=== PATIENT | female | born 1980 | race Caucasian/White ===

== ENCOUNTER 2019-07-09 11:54 | Emergency (ER) | payer OTHER, MEDICAID, SELFPAY ==
[2019-07-09] VITALS (8 sets, daily range): BP systolic 124–141; BP diastolic 72–93; PULSE 70–130; RESP 13–26; TEMP 36.4; O2SAT 94–100
--- NOTE | 2019-07-09 12:06 | DI.RAD.S_ITS ---
PROCEDURE: XR CHEST 2V INDICATIONS: History of spontaneous pneumo with shortness of breath TECHNIQUE: 2 views of the chest were acquired. COMPARISON: None. FINDINGS: Surgical changes and devices: None. Lungs and pleura: Diffuse haziness of right upper lung field with posterior density seen on lateral view, suggesting possible loculated right posterior pleural fluid. Patchy platelike atelectasis in the right lower lobe. No pneumothorax identified. Mediastinum: Mediastinal contours are normal. Heart size is normal. Bones and chest wall: No suspicious bony abnormalities. Soft tissues appear unremarkable. IMPRESSION: 1. Suspect posterior loculated pleural fluid in the right hemithorax from the mid chest superiorly. 2. Patchy atelectasis in the right lung. 3. No pneumothorax. Comment: Contrast chest CT may be helpful. Dictated by: Sebastien Rivera M.D. on 07/09/2019 at 12:38 Approved by: Sebastien Rivera M.D. on 07/09/2019 at 12:40
--- NOTE | 2019-07-09 12:20 | PC.NURSE ---
Patient came in to the ER complaining of SOB. Was treated recently at [facility] in [place] ED on Tuesday for pneumothorax. Today lung sounds diminished/absent over her right lung field. Patient is A&Ox4.
--- NOTE | 2019-07-09 12:23 | ED_ITS ---
HPI - General Adult General Chief complaint: Shortness of Breath/Dyspnea Stated complaint: Recovering From Collapased Lung, Not Improving Time Seen by Provider: 07/09/19 11:57 Source: patient Mode of arrival: Ambulatory Limitations: no limitations History of Present Illness HPI narrative: 39-year-old female. The in the last month sustained a spontaneous hemopneumothorax. Unsure the exact etiology. She was initially seen in an outside emergency department for chest discomfort. She states that she had a chest x-ray done and ultrasounds of her legs. She received a phone call from the emergency department today later stating that she had a superficial thrombosis in her lower extremity. She was started on a nticoagulation. The next day she started having more chest pain. She went back to the emergency department. Other x-ray was obtained which showed a right- sided pneumothorax. Chest tube was placed. She was admitted to the hospital. During that time the chest tube was replaced with a larger 1 because she developed hemothorax. She was then transferred to [facility] where she had this chest tube placed 2 more times. All tubes were ventrally removed. She was discharged home. Went to her primary doctor yesterday for follow-up. Had a chest x-ray done. She was told that her chest x-ray was not improving. She was told that if she ever had the shortness of breath or chest pain she should come the emergency department. She states that she feels like since she was discharged from the hospital she has not worsened but certainly has not improved. Still have some shortness of breath and dyspnea on exertion. Related Data Home Medications Medication Instructions Recorded Confirmed acetaminophen 1,000 mg PO Q6H PRN 07/09/19 07/09/19 iron,carbonyl-vitamin C-FOS 1 tab PO DAILY 07/09/19 07/09/19 [Chewable Iron] Previous Rx's Medication Instructions Recorded furosemide [Lasix] 40 mg PO DAILY 3 Days #3 tab 07/09/19 Allergies Allergy/AdvReac Type Severity Reaction Status Date / Time No Known Drug Allergies Allergy Verified 07/09/19 12:26 Review of Systems Constitutional Constitutional: Denies fever(s) Cardiovascular Cardiovascular: Reports chest pain, Reports dyspnea and Reports dyspnea on exertion Respiratory Respiratory: Denies cough, Reports dyspnea and Reports dyspnea on exertion Gastrointestinal Gastrointestinal: Denies abdominal pain, Denies nausea and Denies vomiting Integumentary/Breasts Skin/Breast: Denies lesions and Denies rash Neurologic Neurologic: Denies behavioral changes Psychiatric Psychiatric: Denies behavioral changes Hematologic/Lymphatic Hematologic/Lymphatic: Denies easy bleeding and Denies easy bruising Patient History Medical History (Updated 07/09/19 @ 16:08 by Dustin Bravo DO) Anemia (Acute) Pneumothorax (Acute) Social History Smoking Status: Former smoker Exam Initial Vital Signs Initial Vital Signs: Vital Signs Temperature 97.6 F 07/09/19 12:06 Pulse Rate 130 H 07/09/19 12:06 Respiratory Rate 13 07/09/19 12:06 Blood Pressure 136/93 H 07/09/19 12:06 Pulse Oximetry 98 07/09/19 12:06 Const General: cooperative, comfortable and well developed Limitations: mental status not altered HENMT Head: normal to inspection and normocephalic Resp Effort & Inspection: normal respiratory effort, not labored, no nasal flaring and not tachypneic Other: Decreased sounds right Cardio Rate: tachycardic Rhythm: regular rhythm GI Inspection: non-distended Palpation: soft, No firm and No tender Skin Lesions: no lesions Rashes: no rashes Neuro General: alert and awake Cognition: normal cognition Speech: speech normal Extrem General: normal to inspection and capillary refill normal Psych Appearance: grossly normal and well kempt Scores GCS Annabelle coma scale eye opening: Spontaneous [place] coma scale verbal response: Orientated [place] coma scale motor response: Obey commands [place] coma scale total score: 15 Course Orders Ordered: ED Orders 07/09/19 12:06 XR chest 2V Stat 07/09/19 12:15 Basic Metabolic Panel Stat Complete Blood Count AUTO DIFF Stat Test Serum,Qual Stat 07/09/19 14:03 CT chest w con Stat Discontinued Medications Acetaminophen (Tylenol) 650 mg PO NOW ONE Stop: 07/09/19 12:49 Last Admin: 07/09/19 13:03 Dose: 650 mg Documented by: ANTHONY Sodium Chloride (Normal Saline 0.9%) 1,000 mls @ 1,000 mls/hr IV BOLUS ONE Stop: 07/09/19 13:44 Last Infusion: 07/09/19 14:04 Dose: 0 mls/hr Documented by: Admin: 07/09/19 13:02 Dose: 1,000 mls/hr Documented by: ANTHONY Vital Signs Vital signs: Vital Signs - 8 hr 07/09/19 12:06 07/09/19 12:24 07/09/19 13:00 Temperature 97.6 F Pulse Rate 130 H 116 H 96 H Respiratory Rate 13 17 26 H Blood Pressure 136/93 H Blood Pressure [Right Arm] 141/91 H 138/83 Pulse Oximetry 98 94 100 07/09/19 13:30 07/09/19 14:15 07/09/19 15:00 Temperature Pulse Rate 80 90 70 Respiratory Rate 18 16 18 Blood Pressure Blood Pressure [Right Arm] 130/72 139/84 124/76 Pulse Oximetry 99 100 100 07/09/19 15:09 07/09/19 16:09 Temperature Pulse Rate 84 78 Respiratory Rate 26 H 18 Blood Pressure Blood Pressure [Right Arm] 124/76 126/83 Pulse Oximetry 99 100 Medical Decision Making Lab Data Lab results reviewed: Yes I reviewed the patient's lab results. Result diagrams: 07/09/19 12:15 07/09/19 12:15 Labs: Lab Results 07/09/19 07/09/19 07/09/19 Range/Units 12:15 12:15 12:15 WBC 10.8 (4.5-11.0) X10^3/uL RBC 4.66 (4.0-5.2) X10^6/uL Hgb 12.9 (12.0-16.0) g/dL Hct 38.9 (36-46) % MCV 83.5 (80-100) fL MCH 27.7 (26-34) PG MCHC 33.2 (30-36) % RDW 22.8 H (11.6-14.8) % Plt Count 673 H (150-400) X10^3/uL Neut % (Auto) 72.1 (50-75) % Lymph % (Auto) 18.0 L (25-40) % [place] % (Auto) 6.8 (3-14) % Eos % (Auto) 2.2 (2-4) % Baso % (Auto) 0.9 (0-2) % Neut # (Auto) 7800 H (3117-1299) /uL Lymph # (Auto) 1900 (6494-4119) /uL [place] # (Auto) 700 (0-900) /uL Eos # (Auto) 200 (0-450) /uL Baso # (Auto) 100 (0-100) /uL RBC Morphology Not Reportable Poikilocytosis 1+ H Anisocytosis 2+ H Sodium 139 (137-145) mmol/L Potassium 4.1 (3.4-5.1) mmol/L Chloride 99 (98-107) mmol/L Carbon Dioxide 30 (22-32) mmol/L BUN 7 (7-17) mg/dL Creatinine 0.62 (0.52-1.04) mg/dL Estimated GFR > 60.0 (>60) mL/min BUN/Creatinine Ratio 11.3 (6-22) Glucose 110 H (70-100) mg/dL Calcium 10.2 (8.4-10.2) mg/dL Serum , Qual Negative (Negative) Imaging Data Chest x-ray: Radiologist's Impression: [address] [address] XRay Report Signed Patient: Sarah King LMR#: [id number] : 1980Acct:[id number] Age/Sex: 39 / FDate of Service: 07/09/19 Loc: ED Accession Number: [id number] Procedure: XR chest 2V Ordering Provider: Dustin Bravo D.O. PROCEDURE: XR CHEST 2V INDICATIONS: History of spontaneous pneumo with shortness of breath TECHNIQUE: 2 views of the chest were acquired. COMPARISON: None. FINDINGS: Surgical changes and devices: None. Lungs and pleura: Diffuse haziness of right upper lung field with posterior density seen on lateral view, suggesting possible loculated right posterior pleural fluid. Patchy platelike atelectasis in the right lower lobe. No pneumothorax identified. Mediastinum: Mediastinal contours are normal. Heart size is normal. Bones and chest wall: No suspicious bony abnormalities. Soft tissues appear unremarkable. IMPRESSION: 1. Suspect posterior loculated pleural fluid in the right hemithorax from the mid chest superiorly. 2. Patchy atelectasis in the right lung. 3. No pneumothorax. Comment: Contrast chest CT may be helpful. Dictated by: Sebastien Rivera M.D. on 07/09/2019 at 12:38 Approved by: Sebastien Rivera M.D. on 07/09/2019 at 12:40 CT scan - chest: Radiologist's Impression: [address] [address] [address] Scan Report Signed Patient: Sarah King LMR#: [id number] : 1980Acct:[id number] Age/Sex: 39 / FDate of Service: 07/09/19 Loc: ED Accession Number: [id number] Procedure: CT chest w con Ordering Provider: Dustin Bravo D.O. PROCEDURE: CT CHEST W CON INDICATIONS: Right-sided pulmonary fluid collection TECHNIQUE: After the administration of intravenous contrast, 5 mm thick sections acquired from the pulmonary apices to the posterior costophrenic angles. 1 mm axial lung, 5 mm thick coronal and sagittal reformats and 7 mm axial MIP were acquired. For radiation dose reduction, the following was used: automated exposure control, adjustment of mA and/or kV according to patient size. COMPARISON: [facility], CR, XR CHEST 2V, 07/09/2019, 12:02. FINDINGS: Image quality: Excellent. Lungs and pleura: There is a small right-sided pleural effusion seen, which sharif ears free-flowing. This measures approximately 0 Hounsfield units, and is consistent with simple fluid. There is consolidation with internal enhancement seen involving the right lower lobe. Small amount of fluid is seen invaginating along the right oblique fissure. No pneumothorax is seen. A small amount of subpleural bleb formation can be seen. Mediastinum: Heart size is normal. No pericardial effusion. No mediastinal or hilar adenopathy by size criteria. Thoracic aorta and central pulmonary arteries are normal in size. Esophagus is normal in caliber. No hiatal hernia. Bones and chest wall: No suspicious bony lesions. No vertebral body compression fractures. No axillary or supraclavicular adenopathy by size criteria. Thyroid gland demonstrates no significant CT abnormality. Abdomen: Visualized upper abdominal solid organs appear normal. Upper abdominal bowel loops are normal in caliber. IMPRESSION: Small, simple appearing right-sided pleural effusion, which appears free-flowing. Consolidation can be seen at the right lung base, likely related to a collection of atelectasis and infiltrate. Dictated by: Mika Louise M.D. on 07/09/2019 at 13:19 Approved by: Mika Louise M.D. on 07/09/2019 at 13:22 MDM Narrative Medical decision making narrative: Patient not hypoxic, was initially tachycardic upon arrival but that improved. Not tachypneic. Patient states that since she has been discharged from the hospital her symptoms have not worsened but they have not improved. Initial chest x-ray read Radiology recommend CT scan. This is performed. Shows no pneumothorax. Does show small pleural effusions. I did discuss the case with with cardiothoracic surgery at [facility] who after discussion of the radiology results recommended the patient did not need any further procedures. Had a discussion with the patient regarding her symptoms. We acknowledge that the CT scan does mention that there were some findings concerning for pneumonia however she is afebrile, does not have an elevated white blood cell count and this findings could very well be contusions from her prior procedures. Cardiothoracic surgery did recommend placing the patient on diuretics to help with the effusions which will do. Will hold on antibiotics for now. Patient was given return precautions. Will have her follow-up with her primary provider. She expressed understanding and agreement. Discharge Plan Departure Patient Disposition: Home Clinical Impression: Pleural effusion Discharge Date/Time: 07/09/19 16:17 Instructions: DI for Pleural Effusion Activity Restrictions/Additional Instructions: Recommend that you keep all of your scheduled medical appointments. Your prescriptions were electronically transmitted to [facility] in [place]. Contact your primary provider for follow-up. Return to the emergency department for any new or worsening symptoms Prescriptions: New furosemide [Lasix] 40 mg tablet 40 mg PO DAILY 3 Days Qty: 3 RF: 0 No Action acetaminophen 500 mg Capsule 1,000 mg PO Q6H PRN (Reason: Pain (Scale Score 1-3)) RF: 0 Chewable Iron 30-10-25 mg Tablet,Chewable 1 tab PO DAILY RF: 0 Referrals: Jazmin Serrano ARNP [Primary Care Provider] -
--- NOTE | 2019-07-09 12:24 | PC.NURSE ---
dr. almonte notified of pt arrival, upon triage
--- NOTE | 2019-07-09 12:30 | PC.NURSE ---
Pt had leg pain, went to [facility] ED, dx w/ superficial thrombophlebitis, placed on eliquis, developed hemothorax (? hemo/pnuemo) chest tube placed, went to [facility] after 2 days @ [facility] where she had multiple chest tubes and was discharged off of blood thinners. No able to speak in full sentences. [place]/warm/dry but HR is 106-132 sinus tach w/o ectopy. Pt has normal blood pressure. Trachea is midline. Pt is eating and drinking w/o difficulty and is taking only tylenol for pain. Pain has not worsened over past days.
[2019-07-09] MEDS: SODIUM CHLORIDE 0.9% 1,000 ML 1000 ML IV (13:02)
[2019-07-09] MEDS: ACETAMINOPHEN 325 MG TABLET 650 MG PO (13:03)
[2019-07-09 13:09] LABS: Add Manual Diff / Slide Review NO; Basophils Absolute Auto 100 /uL (0-100); Basophils Percent Auto 0.9 % (0-2); Eosinophils Absolute Auto 200 /uL (0-450); Eosinophils Percent Auto 2.2 % (2-4); Hematocrit 38.9 % (36-46); Hemoglobin 12.9 g/dL (12.0-16.0); Lymphocytes Absolute Auto 1900 /uL (1100-4500); Mean Corpuscular HGB Conc 33.2 % (30-36); Mean Corpuscular Hemoglobin 27.7 PG (26-34); Mean Corpuscular Volume 83.5 fL (80-100); Monocytes Absolute Auto 700 /uL (0-900); Monocytes Percent Auto 6.8 % (3-14); Neutrophils Absolute Auto 7800 /uL (1500-7000); Neutrophils Percent Auto 72.1 % (50-75); Platelet Count 673 X10^3/uL (150-400); Red Blood Cell Count 4.66 X10^6/uL (4.0-5.2); Red Cell Distribution Width 22.8 % (11.6-14.8); White Blood Cell Count 10.8 X10^3/uL (4.5-11.0)
[2019-07-09 13:14] LABS: BUN Creatinine Ratio 11.3 (6-22); Blood Urea Nitrogen 7 mg/dL (7-17); Calcium 10.2 mg/dL (8.4-10.2); Carbon Dioxide 30 mmol/L (22-32); Chloride 99 mmol/L (98-107); Estimated Glomerular Filt Rate > 60.0 mL/min (>60); Glucose 110 mg/dL (70-100); HEMOLYSIS < 15 (0-50); Potassium 4.1 mmol/L (3.4-5.1); Sodium 139 mmol/L (137-145)
[2019-07-09 13:39] LABS: Anisocytosis 2+; Poikilocytosis 1+
[2019-07-09 13:51] LABS: Pregnancy Test Serum,Qual Negative (Negative)
--- NOTE | 2019-07-09 14:03 | DI.CT.S_ITS ---
PROCEDURE: CT CHEST W CON INDICATIONS: Right-sided pulmonary fluid collection TECHNIQUE: After the administration of intravenous contrast, 5 mm thick sections acquired from the pulmonary apices to the posterior costophrenic angles. 1 mm axial lung, 5 mm thick coronal and sagittal reformats and 7 mm axial MIP were acquired. For radiation dose reduction, the following was used: automated exposure control, adjustment of mA and/or kV according to patient size. COMPARISON: [facility], CR, XR CHEST 2V, 07/09/2019, 12:02. FINDINGS: Image quality: Excellent. Lungs and pleura: There is a small right-sided pleural effusion seen, which appears free-flowing. This measures approximately 0 Hounsfield units, and is consistent with simple fluid. There is consolidation with internal enhancement seen involving the right lower lobe. Small amount of fluid is seen invaginating along the right oblique fissure. No pneumothorax is seen. A small amount of subpleural bleb formation can be seen. Mediastinum: Heart size is normal. No pericardial effusion. No mediastinal or hilar adenopathy by size criteria. Thoracic aorta and central pulmonary arteries are normal in size. Esophagus is normal in caliber. No hiatal hernia. Bones and chest wall: No suspicious bony lesions. No vertebral body compression fractures. No axillary or supraclavicular adenopathy by size criteria. Thyroid gland demonstrates no significant CT abnormality. Abdomen: Visualized upper abdominal solid organs appear normal. Upper abdominal bowel loops are normal in caliber. IMPRESSION: Small, simple appearing right-sided pleural effusion, which appears free-flowing. Consolidation can be seen at the right lung base, likely related to a collection of atelectasis and infiltrate. Dictated by: Mika Louise M.D. on 07/09/2019 at 13:19 Approved by: Mika Louise M.D. on 07/09/2019 at 13:22
== END 2019-07-09 16:17 | disposition home or self-care (01) ==
PROVIDERS: Emergency Provider Emergency Medicine; PCP Nurse Practitioner Gerontology
DX: J90 Pleural effusion, not elsewhere classified (principal); R00.0 Tachycardia, unspecified; Z87.09 Personal history of other diseases of the respiratory system
CPT/HCPCS: 36415; 71046; 71260; 80048; 84703; 85025; 96360; 99284; 99285; Q9967

== ENCOUNTER 2019-08-20 21:04 | Emergency (ER) | payer OTHER, MEDICAID, SELFPAY ==
--- NOTE | 2019-08-20 21:08 | ED.CHESTPAIN ---
HPI - Chest Pain General Chief Complaint: Chest Pain Stated Complaint: Chest Pain, HX Collapsed Lung Time Seen by Provider: 08/20/19 21:06 Source: patient Mode of arrival: Ambulatory Limitations: no limitations History of Present Illness HPI narrative: 39F former smoker with history of spontaneous PTX and treatment with chest tube up in [place] presents with right sided chest pain since . She denies any new injury nor shortness of breath. She states that at times it feels sharp and stabbing and other times it feels pressure-like. She denies any dizziness, weakness or lightheadedness. She has had no runny nose, sore throat or cough. She states it feels different than when she was having troubles with pleural effusion and PTX before. She denies travel, hx of any type of cancer and has had peripheral clots before but no PE. Related Data Home Medications Medication Instructions Recorded Confirmed acetaminophen 1,000 mg PO Q6H PRN 07/09/19 07/09/19 iron,carbonyl-vitamin C-FOS 1 tab PO DAILY 07/09/19 07/09/19 [Chewable Iron] Previous Rx's Medication Instructions Recorded hydrocodone-acetaminophen 1 tab PO Q4-6H PRN #10 tab 08/20/19 Allergies Allergy/AdvReac Type Severity Reaction Status Date / Time No Known Drug Allergies Allergy Verified 07/09/19 12:26 Review of Systems Constitutional Constitutional: Denies chills, Denies fatigue, Denies fever(s), Denies frequent falls, Denies lethargy and Denies weakness Eyes Eyes: Denies change in vision, Denies eye discharge, Denies irritation and Denies loss of vision ENT Ears, Nose, Mouth, and Throat: Denies change in voice, Denies dizziness, Denies neck pain, Denies sore throat and Denies throat swelling Cardiovascular Cardiovascular: Reports chest pain, Denies irregular heart rhythm, Denies lightheadedness, Denies palpitations, Denies dyspnea, Denies dyspnea on exertion and Denies orthopnea Respiratory Respiratory: Denies cough, Denies dyspnea, Denies dyspnea on exertion and Denies wheezing Gastrointestinal Gastrointestinal: Denies abdominal pain, Denies change in bowel habits, Denies diarrhea, Denies nausea and Denies vomiting Genitourinary Genitourinary: Denies hematuria, Denies flank pain, Denies urinary incontinence and Denies urinary urgency Musculoskeletal Musculoskeletal: Denies back pain, Denies muscle weakness, Denies neck pain, Denies numbness and Denies tingling Integumentary/Breasts Skin/Breast: Denies pruritus, Denies erythema, Denies rash and Denies wounds Neurologic Neurologic: Denies behavioral changes, Denies confusion, Denies dizziness, Denies frequent falls, Denies loss of vision, Denies numbness, Denies tingling and Denies weakness Psychiatric Psychiatric: Denies anxiety, Denies behavioral changes, Denies confusion, Denies depression, Denies homicidal ideation and Denies suicidal ideation Endocrine Endocrine: Denies fatigue, Denies flushing and Denies palpitations Hematologic/Lymphatic Hematologic/Lymphatic: Denies easy bruising Allergic/Immunologic Allergic/Immunologic: Denies urticaria, Denies throat swelling and Denies wheezing Patient History Medical History Anemia (Acute) Pneumothorax (Acute) Social History Smoking Status: Former smoker Smoking Status: Former smoker Substance Use Type: does not use Exam Narrative Exam Narrative: GENERAL: [39] year old patient appears stated age. Well-nourished, well-developed patient, in mild distress. HEAD: Atraumatic. Normocephalic. EYES: Pupils equal round and reactive. Extraocular motions intact. No scleral icterus. No injection or drainage. ENT: Nose without bleeding, purulent drainage. Throat without erythema, tonsillar hypertrophy or exudate. Airway patent. NECK: Trachea midline. Non tender CARDIOVASCULAR: Regular rate and rhythm without murmurs, gallops, or rubs. RESPIRATORY: Clear to auscultation. Breath sounds equal bilaterally. No wheezes, rales, or rhonchi. GASTROINTESTINAL: Abdomen soft, non-tender, nondistended. EXTREMITIES: No edema or joint tenderness. BACK: Nontender without deformity or crepitance. No flank tenderness. NEURO: AOx3. SKIN: No rash or erythema of visible areas Initial Vital Signs Initial Vital Signs: Vital Signs Pulse Rate 91 H 08/20/19 21:16 Respiratory Rate 22 08/20/19 21:16 Blood Pressure 172/87 H 08/20/19 21:16 Pulse Oximetry 100 08/20/19 21:16 Scores HEART Score Heart Score history: Slightly Suspicious Heart Score EKG: Normal Heart Score Age: < 45 years old Heart Score risk factors: No known risk factors Heart Score troponin: < or = to normal limit Heart Score Total: 0 Course Orders Ordered: ED Orders 08/20/19 21:09 XR chest 2V Stat 08/20/19 21:14 EKG-12 Lead Stat 08/20/19 21:44 Complete Blood Count AUTO DIFF Stat Comprehensive Metabolic Panel Stat D Dimer Stat Lipase Stat Troponin & CK Cardiac Panel Stat 08/20/19 22:17 CT chest wo con Stat Discontinued Medications Hydrocodone Bitart/Acetaminophen (Vicodin 5/325 Prepack) 1 bottle MISC SEEINSTR ONE Stop: 08/20/19 23:49 Last Admin: 08/20/19 23:54 Dose: 1 bottle Documented by: VINAY Sodium Chloride (Normal Saline 0.9%) 1,000 mls @ 150 mls/hr IV CONT OSORIO Last Infusion: 08/20/19 23:54 Dose: 0 mls/hr Documented by: Admin: 08/20/19 21:42 Dose: 150 mls/hr Documented by: KAYY Vital Signs Vital signs: Vital Signs - 8 hr 08/20/19 21:16 08/20/19 22:00 08/20/19 23:32 Pulse Rate 91 H 61 61 Respiratory Rate 22 22 18 Blood Pressure Blood Pressure [Left Arm] 172/87 H 159/88 H 145/83 H Pulse Oximetry 100 100 100 08/21/19 00:01 Pulse Rate 88 Respiratory Rate 18 Blood Pressure 145/83 H Blood Pressure [Left Arm] Pulse Oximetry 99 MDM - Chest Pain Lab Data Result diagrams: 08/20/19 21:44 08/20/19 21:44 Labs: Lab Results 08/20/19 08/20/19 08/20/19 Range/Units 21:44 21:44 21:44 WBC 8.3 (4.5-11.0) X10^3/uL RBC 5.50 H (4.0-5.2) X10^6/uL Hgb 15.0 (12.0-16.0) g/dL Hct 45.3 (36-46) % MCV 82.5 (80-100) fL MCH 27.3 (26-34) PG MCHC 33.1 (30-36) % RDW 18.8 H (11.6-14.8) % Plt Count 251 (150-400) X10^3/uL Neut % (Auto) 46.1 L (50-75) % Lymph % (Auto) 41.6 H (25-40) % Wake % (Auto) 9.1 (3-14) % Eos % (Auto) 1.7 L (2-4) % Baso % (Auto) 1.5 (0-2) % Neut # (Auto) 3900 (7719-0575) /uL Lymph # (Auto) 3500 (5450-5665) /uL Wake # (Auto) 800 (0-900) /uL Eos # (Auto) 100 (0-450) /uL Baso # (Auto) 100 (0-100) /uL D-Dimer < 200 (<230) ng/mL Sodium 138 (137-145) mmol/L Potassium 4.1 (3.4-5.1) mmol/L Chloride 104 (98-107) mmol/L Carbon Dioxide 28 (22-32) mmol/L BUN 11 (7-17) mg/dL Creatinine 0.72 (0.52-1.04) mg/dL Estimated GFR > 60.0 (>60) mL/min BUN/Creatinine Ratio 15.3 (6-22) Glucose 98 (70-100) mg/dL Calcium 10.0 (8.4-10.2) mg/dL Total Bilirubin 0.3 (0.2-1.3) mg/dL AST 32 (14-36) IU/L ALT 28 (<35) IU/L Alkaline Phosphatase 31 L (38-126) U/L Total Creatine Kinase 41 (30-135) U/L CK-MB (CK-2) TNP CK-MB (CK-2) Rel Index TNP Troponin I < 0.012 (0.01-0.034) ng/mL Total Protein 8.4 H (6.3-8.2) g/dL Albumin 4.7 (3.5-5.0) g/dL Globulin 3.7 (1.7-4.1) g/dL Albumin/Globulin Ratio 1.3 (1.0-2.8) Lipase 193 (23-300) U/L Imaging Data Chest x-ray: Attestation: I personally reviewed and interpreted this imaging study as follows: My Impression: No obvious PTX, pneumonia, effusion Radiologist's Impression: Chart Viewer Diagnostics DATE TYPE STATUS AUTHOR Louise 08/20/19 21:09 Kisha Faria 07/09/19 14:03 Mika Louise 07/09/19 12:06 Sebastien Rivera Tara L 39, F0 1980 [facility], [facility] ED R10 72.575kg Chest Pain Search Chart No Data to Display No Data to Display Today 22:00 Sarah King 39 F [address] [address] XRay Report Signed Patient: Sarah King LMR#: [id number] : 1980Acct:[id number] Age/Sex: 39 / FDate of Service: 08/20/19 Loc: ED Accession Number: [id number] Procedure: XR chest 2V Ordering Provider: Taye Castanon D.O. PROCEDURE: XR CHEST 2V INDICATIONS: CP TECHNIQUE: 2 views of the chest were acquired. COMPARISON: [facility], CT, CT CHEST W CON, 07/09/2019, 13:56. [facility], CR, XR CHEST 2V, 07/09/2019, 12:02. FINDINGS: Surgical changes and devices: None. Lungs and pleura: Lungs are clear. No pleural effusions or pneumothorax. Mediastinum: Mediastinal contours are normal. Heart size is normal. Bones and chest wall: No suspicious bony abnormalities. Soft tissues appear unremarkable. IMPRESSION: No acute cardiopulmonary findings. Dictated by: Kisha Faria M.D. on 08/20/2019 at 21:39 Approved by: Kisha Faria M.D. on 08/20/2019 at 21:41 ECG Data Attestation: I personally reviewed and interpreted this ECG as follows: Interpretation: EKG is normal sinus rhythm rate [73 ] and free of any signs of ischemia or ectopy. No ST segmental elevation or depression. No T wave inversions MDM Narrative Medical decision making narrative: Multiple etiologies for patient's symptoms considered including: [Recurrence of pneumothorax versus pleural effusion versus pulmonary embolism versus other. Most likely irritation of existing scar tissue, perhaps from a small new effusion, nothing large enough to drain or admit.] Patient's symptoms improved or duration of stay with above-stated therapies. Findings and discharge diagnosis discussed with patient/family followed by verbalization of understanding Return precautions discussed with patient/family whom verbalize understanding. Discharge Plan Departure Patient Disposition: Home Clinical Impression: Atypical chest pain Discharge Date/Time: 08/21/19 00:03 Instructions: DI for Atypical Chest Pain Activity Restrictions/Additional Instructions: *You have been diagnosed with [ atypical chest pain, likely consequence of prior pneumothorax ] *What to do: *Take medications as directed: prescription sent to [email or web address] *Follow up with your primary care provider in 2-3 days, call for an appointment. Let them know you were seen in the Emergency Department and that we ask that you be seen in follow up *Return to ER if you should have any new, worsening or concerning symptoms, such as [increased pain, shortness of breath, or other bothersome symptoms ] Prescriptions: New hydrocodone-acetaminophen 5-325 mg tablet 1 tab PO Q4-6H PRN (Reason: pain) Qty: 10 RF: 0 No Action acetaminophen 500 mg Capsule 1,000 mg PO Q6H PRN (Reason: Pain (Scale Score 1-3)) RF: 0 Chewable Iron 30-10-25 mg Tablet,Chewable 1 tab PO DAILY RF: 0 Referrals: Jazmin Serrano ARNP [Primary Care Provider] -
[2019-08-20 21:16] VITALS: BP 172/87; PULSE 91; RESP 22; O2SAT 100
[2019-08-20] MEDS: SODIUM CHLORIDE 0.9% 1,000 ML 150 ML IV (21:42)
[2019-08-20 21:52] LABS: Add Manual Diff / Slide Review NO; Basophils Absolute Auto 100 /uL (0-100); Basophils Percent Auto 1.5 % (0-2); Eosinophils Absolute Auto 100 /uL (0-450); Eosinophils Percent Auto 1.7 % (2-4); Hematocrit 45.3 % (36-46); Lymphocytes Absolute Auto 3500 /uL (1100-4500); Lymphocytes Percent Auto 41.6 % (25-40); Mean Corpuscular HGB Conc 33.1 % (30-36); Mean Corpuscular Hemoglobin 27.3 PG (26-34); Mean Corpuscular Volume 82.5 fL (80-100); Monocytes Absolute Auto 800 /uL (0-900); Monocytes Percent Auto 9.1 % (3-14); Neutrophils Absolute Auto 3900 /uL (1500-7000); Neutrophils Percent Auto 46.1 % (50-75); Platelet Count 251 X10^3/uL (150-400); Red Cell Distribution Width 18.8 % (11.6-14.8); White Blood Cell Count 8.3 X10^3/uL (4.5-11.0)
[2019-08-20 21:59] LABS: Alanine Aminotransferase 28 IU/L (<35); Albumin 4.7 g/dL (3.5-5.0); Albumin Globulin Ratio 1.3 (1.0-2.8); Alkaline Phosphatase 31 U/L (38-126); Aspartate Aminotransferase 32 IU/L (14-36); BUN Creatinine Ratio 15.3 (6-22); Bilirubin Total 0.3 mg/dL (0.2-1.3); Blood Urea Nitrogen 11 mg/dL (7-17); Carbon Dioxide 28 mmol/L (22-32); Chloride 104 mmol/L (98-107); Creatine Kinase 41 U/L (30-135); D Dimer < 200 ng/mL (<230); Estimated Glomerular Filt Rate > 60.0 mL/min (>60); Globulin 3.7 g/dL (1.7-4.1); Glucose 98 mg/dL (70-100); HEMOLYSIS 15 (0-50); Lipase 193 U/L (23-300); Potassium 4.1 mmol/L (3.4-5.1); Sodium 138 mmol/L (137-145); Total Protein 8.4 g/dL (6.3-8.2)
[2019-08-20 22:00] VITALS: BP 159/88; PULSE 61; RESP 22; O2SAT 100
[2019-08-20 22:10] LABS: Troponin I < 0.012 ng/mL (0.01-0.034)
--- NOTE | 2019-08-20 22:17 | DI.CT.S_ITS ---
PROCEDURE: CT CHEST WO CON INDICATIONS: chest pain, shortness of breath TECHNIQUE: Noncontrast 5 mm thick sections acquired from the pulmonary apices to the posterior costophrenic angles. 1 mm lung window, 5 mm thick coronal and sagittal and 7 mm axial MIP reformats were then acquired. For radiation dose reduction, the following was used: automated exposure control, adjustment of mA and/or kV according to patient size. COMPARISON: [facility], CT, CT CHEST W CON, 07/09/2019, 13:56. FINDINGS: Image quality: Excellent. Lungs and pleura: There is a small residual subpleural effusion in the posterior right upper lobe, significant decrease compared to 07/09/2019. Mild dependent atelectasis in right upper lobe and right middle lobe. Mild emphysema. Multiple small pulmonary nodules are present bilaterally. There is a nodule in the right upper lobe (series 3 image 72). A couple of nodules are seen in the left lower lobe measuring 3 mm (series 3 image 76) and 4 mm (series 3 image 201). No pleural effusions or pneumothorax. Central and peripheral airways are patent and normal in caliber. Mediastinum: Heart size is normal. No pericardial effusion. No mediastinal adenopathy by size criteria. Thoracic aorta and central pulmonary arteries are normal in size. Esophagus is normal in caliber. No hiatal hernia. Bones and chest wall: No suspicious bony lesions. No vertebral body compression fractures. No axillary or supraclavicular adenopathy by size criteria. Thyroid gland is normal. Abdomen: Visualized upper abdominal solid organs and bowel loops appear normal in the absence of contrast. IMPRESSION: 1. A small residual loculated pleural effusion in the posterior right upper lobe, decreased compared to 07/09/2019. 2. There are multiple subcentimeter lung nodules bilaterally. Please see intervals following recommendation. 3. Mild emphysema. Fleischner Society criteria for SOLID lung nodule followup. Nodule size (mm)Low-risk patientHigh-risk patient?4No follow-up neededFollow-up at 12 mo; if no change, no further follow-up>[id number] CT at 12 mo; if no change, no further follow-up needed.Initial follow-up CT at 6-12 mo, then 18-24 mo if no change. >6-8Initial follow-up CT at 6-12 mo, then 18-24 mo if no change. Initial follow-up CT at 3-6 mo, then 9-12 mo and 24 mo if no change. >8Follow-up CT at 3, 9, 24 mo. Or PET and/or biopsy.Same as for low-risk pts. Dictated by: Tanja Huerta M.D. on 08/21/2019 at 8:36 Approved by: Tanja Huerta M.D. on 08/21/2019 at 8:47
[2019-08-20 23:32] VITALS: BP 145/83; PULSE 61; RESP 18; O2SAT 100
[2019-08-20] MEDS: HYDROCODONE/ACET 5/325 PREPACK 1 BOTTLE MISC (23:54)
[2019-08-21 00:01] VITALS: BP 145/83; PULSE 88; RESP 18; O2SAT 99
== END 2019-08-21 00:03 | disposition home or self-care (01) ==
PROVIDERS: Emergency Provider Emergency Medicine; PCP Nurse Practitioner Gerontology
DX: R07.89 Other chest pain (principal)
CPT/HCPCS: 36415; 71046; 71250; 80053; 82550; 83690; 84484; 85025; 85379; 93005; 96360; 96361; 99284

== ENCOUNTER → 2019-10-01 09:54 | Outpatient (CLI) | payer OTHER, MEDICAID, SELFPAY ==
[2019-10-01 23:41] LABS: COVID19 Sendout Not Detected (Not Detect)
== END ==
PROVIDERS: PCP Nurse Practitioner Gerontology; Visit Provider Physician Assistant
DX: Z01.812 Encounter for preprocedural laboratory examination (principal)
CPT/HCPCS: 87635

== ENCOUNTER 2019-10-04 09:29 | Emergency (ER) | payer OTHER, MEDICAID, SELFPAY ==
--- NOTE | 2019-10-04 09:33 | DI.RAD.S_ITS ---
PROCEDURE: XR CHEST 1V INDICATIONS: Chest pain TECHNIQUE: One view of the chest was acquired. COMPARISON: [facility], CR, XR CHEST 2V, 08/20/2019, 21:17. [facility], CR, XR CHEST 2V, 07/09/2019, 12:02. FINDINGS: Surgical changes and devices: None. Lungs and pleura: Lungs are clear. No pleural effusions or pneumothorax. Mediastinum: Mediastinal contours appear normal. Heart size is normal. Bones and chest wall: No suspicious bony lesions. Overlying soft tissues appear unremarkable. IMPRESSION: Relatively large lung volumes, which may indicate aggressive inspiratory effort in addition to COPD. No pneumonia or mass lesion is found. A definite source of chest pain is not seen. Dictated by: Manuel Brewer M.D. on 10/04/2019 at 9:04 Approved by: Manuel Brewer M.D. on 10/04/2019 at 9:05
--- NOTE | 2019-10-04 09:56 | ED_ITS ---
HPI - General Adult General Chief complaint: Chest Pain Stated complaint: ACTIVE CHEST PAIN NOW Time Seen by Provider: 10/04/19 09:33 Source: patient Mode of arrival: Ambulatory Limitations: no limitations History of Present Illness HPI narrative: 39-year-old female. Prior history of a spontaneous pneumothorax which required chest tube placement. Brought over from the respiratory clinic when she went to get a pulmonary function test that was ordered by her ?lung doctor ?reported that just prior to the pulmonary function test the patient did express that she was having right-sided chest discomfort. Patient states this chest discomfort is not new. It has been there since she had the pneumothorax and subsequent chest tubes. She has seen her lung doctor about the chest pain that she is here in the emergency department for today. She was told by her lung provider that this was ?scar tissue in that she would occasionally have discomfort. She states sometimes it is worse than others. States that last night it was 1 of the times where the pain was increased however today it is back to her baseline. No shortness of breath. Related Data Home Medications Medication Instructions Recorded Confirmed acetaminophen 1,000 mg PO Q6H PRN 07/09/19 07/09/19 iron,carbonyl-vitamin C-FOS 1 tab PO DAILY 07/09/19 07/09/19 [Chewable Iron] Previous Rx's Medication Instructions Recorded hydrocodone-acetaminophen 1 tab PO Q4-6H PRN #10 tab 08/20/19 Allergies Allergy/AdvReac Type Severity Reaction Status Date / Time morphine AdvReac Vomiting Verified 10/04/19 10:00 Review of Systems Constitutional Constitutional: Denies fever(s) Cardiovascular Cardiovascular: Reports chest pain and Denies dyspnea Respiratory Respiratory: Denies cough and Denies dyspnea Gastrointestinal Gastrointestinal: Denies abdominal pain, Denies nausea and Denies vomiting Musculoskeletal Musculoskeletal: Denies myalgias Integumentary/Breasts Skin/Breast: Denies lesions and Denies rash Neurologic Neurologic: Denies behavioral changes Psychiatric Psychiatric: Denies behavioral changes Hematologic/Lymphatic Hematologic/Lymphatic: Denies easy bleeding and Denies easy bruising Patient History Medical History Anemia (Acute) Pneumothorax (Acute) Social History Smoking Status: Former smoker Smoking Status: Former smoker Substance Use Type: does not use Exam Initial Vital Signs Initial Vital Signs: Vital Signs Temperature 98.2 F 10/04/19 10:00 Pulse Rate 75 10/04/19 10:00 Respiratory Rate 20 10/04/19 10:00 Blood Pressure 181/94 H 10/04/19 10:00 Pulse Oximetry 98 10/04/19 10:00 Const General: cooperative, healthy appearing, comfortable and well developed HENMT Head: normal to inspection and normocephalic Resp Effort & Inspection: normal respiratory effort Auscultation: clear to auscultation bilaterally Cardio Rate: regular rate Rhythm: regular rhythm Skin Lesions: no lesions Rashes: no rashes Neuro General: patient alert and patient awake Cognition: normal cognition Speech: speech normal Extrem General: normal to inspection and capillary refill normal Psych Appearance: grossly normal and well kempt Course Orders Ordered: ED Orders 10/04/19 09:33 XR chest 1V Stat EKG-12 Lead Stat Vital Signs Vital signs: Vital Signs - 8 hr 10/04/19 10:00 Temperature 98.2 F Pulse Rate 75 Respiratory Rate 20 Blood Pressure 181/94 H Pulse Oximetry 98 Medical Decision Making Imaging Data Chest x-ray: Radiologist's Impression: [address] [address] XRay Report Signed Patient: Sarah King LMR#: [id number] : 1980Acct:[id number] Age/Sex: 39 / FDate of Service: 10/04/19 Loc: ED Accession Number: [id number] Procedure: XR chest 1V Ordering Provider: Dustin Bravo D.O. PROCEDURE: XR CHEST 1V INDICATIONS: Chest pain TECHNIQUE: One view of the chest was acquired. COMPARISON: [facility], CR, XR CHEST 2V, 08/20/2019, 21:17. [facility], , XR CHEST 2V, 07/09/2019, 12:02. FINDINGS: Surgical changes and devices: None. Lungs and pleura: Lungs are clear. No pleural effusions or pneumothorax. Mediastinum: Mediastinal contours appear normal. Heart size is normal. Bones and chest wall: No suspicious bony lesions. Overlying soft tissues appear unremarkable. IMPRESSION: Relatively large lung volumes, which may indicate aggressive inspiratory effort in addition to COPD. No pneumonia or mass lesion is found. A definite source of chest pain is not seen. Dictated by: Manuel Brewer M.D. on 10/04/2019 at 9:04 Approved by: Manuel Brewer M.D. on 10/04/2019 at 9:05 ECG Data Attestation: I personally reviewed and interpreted this ECG as follows: Prior ECG tracings: not available for review Interpretation: Sinus rhythm Ventricular rate is 70 Normal axis Normal QRS Normal QTC No ST T wave changes MDM Narrative Medical decision making narrative: EKG is unremarkable, chest x-ray is unremarkable, pain that she was brought into the emergency department for today is not new for her. Patient actually stated that she did not want to be in the emergency department. She was brought here by the respiratory therapist after she was describing the chest pain prior to her pulmonary function test. Patient states that which she is having is not new. She has been evaluated for this pain in the past. Feel that we can hold on further workup. She does have a follow-up with her chemical research worker later today. She was given return precautions and follow-up instructions. She expressed understanding and agreement. Discharge Plan Departure Patient Disposition: Home Clinical Impression: Atypical chest pain Instructions: DI for Atypical Chest Pain Activity Restrictions/Additional Instructions: Recommend that you continue all of your medications as directed. Keep all of your scheduled medical appointments. Return to the emergency department for any new or worsening symptoms Prescriptions: No Action acetaminophen 500 mg Capsule 1,000 mg PO Q6H PRN (Reason: Pain (Scale Score 1-3)) RF: 0 Chewable Iron 30-10-25 mg Tablet,Chewable 1 tab PO DAILY RF: 0 hydrocodone-acetaminophen 5-325 mg tablet 1 tab PO Q4-6H PRN (Reason: pain) Qty: 10 RF: 0 Referrals: Jazmin Serrano ARNP [Primary Care Provider] -
[2019-10-04 10:00] VITALS: BP 181/94; PULSE 75; RESP 20; TEMP 36.8; O2SAT 98; BMI 25.7
[2019-10-04 10:31] VITALS: BP 125/85; PULSE 66; O2SAT 100
== END 2019-10-04 10:31 | disposition home or self-care (01) ==
PROVIDERS: Emergency Provider Emergency Medicine; PCP Nurse Practitioner Gerontology
DX: R07.89 Other chest pain (principal)
CPT/HCPCS: 71045; 93005; 99283; 99284

== ENCOUNTER 2019-11-19 11:10 | Emergency (ER) | payer OTHER, MEDICAID, SELFPAY ==
[2019-11-19] VITALS (8 sets, daily range): BP systolic 127–176; BP diastolic 80–113; PULSE 66–114; RESP 14–34; TEMP 37; O2SAT 95–100
--- NOTE | 2019-11-19 11:19 | DI.RAD.S_ITS ---
PROCEDURE: XR CHEST 1V INDICATIONS: chest pain TECHNIQUE: One view of the chest was acquired. COMPARISON: [facility], CR, XR CHEST 1V, 10/04/2019, 9:38. FINDINGS: Surgical changes and devices: None. Lungs and pleura: Lungs are clear. No pleural effusions or pneumothorax. Mediastinum: Mediastinal contours appear normal. Heart size is normal. Bones and chest wall: No suspicious bony lesions. Overlying soft tissues appear unremarkable. IMPRESSION: No acute process. Dictated by: Lm Adan M.D. on 11/19/2019 at 11:59 Approved by: Lm Adan M.D. on 11/19/2019 at 11:59
[2019-11-19 11:46] LABS: Add Manual Diff / Slide Review NO; Basophils Absolute Auto 0 /uL (0-100); Basophils Percent Auto 0.3 % (0-2); Eosinophils Absolute Auto 100 /uL (0-450); Eosinophils Percent Auto 1.3 % (2-4); Hematocrit 45.2 % (36-46); Hemoglobin 15.1 g/dL (12.0-16.0); Lymphocytes Absolute Auto 1500 /uL (1100-4500); Lymphocytes Percent Auto 28.3 % (25-40); Mean Corpuscular HGB Conc 33.4 % (30-36); Mean Corpuscular Hemoglobin 28.5 PG (26-34); Mean Corpuscular Volume 85.3 fL (80-100); Monocytes Absolute Auto 400 /uL (0-900); Monocytes Percent Auto 7.6 % (3-14); Neutrophils Absolute Auto 3300 /uL (1500-7000); Neutrophils Percent Auto 62.5 % (50-75); Platelet Count 255 X10^3/uL (150-400); Red Cell Distribution Width 16.4 % (11.6-14.8); White Blood Cell Count 5.3 X10^3/uL (4.5-11.0)
[2019-11-19 11:51] LABS: Prothrombin Time 11.6 SECONDS (10.1-12.7)
[2019-11-19 11:54] LABS: D Dimer < 200 ng/mL (<230); PTT Partial Thromboplastin Tim 31 SECONDS (26.4-36.2)
[2019-11-19 11:55] LABS: Alanine Aminotransferase 23 IU/L (<35); Albumin Globulin Ratio 1.4 (1.0-2.8); Alkaline Phosphatase 33 U/L (38-126); Aspartate Aminotransferase 31 IU/L (14-36); BUN Creatinine Ratio 10.8 (6-22); Bilirubin Total 0.8 mg/dL (0.2-1.3); Blood Urea Nitrogen 9 mg/dL (7-17); Calcium 9.8 mg/dL (8.4-10.2); Carbon Dioxide 31 mmol/L (22-32); Chloride 103 mmol/L (98-107); Creatine Kinase 74 U/L (30-135); Estimated Glomerular Filt Rate > 60.0 mL/min (>60); Globulin 3.5 g/dL (1.7-4.1); Glucose 98 mg/dL (70-100); HEMOLYSIS 17 (0-50); Lipase 102 U/L (23-300); Magnesium 1.9 mg/dL (1.6-2.3); Potassium 3.9 mmol/L (3.4-5.1); Sodium 140 mmol/L (137-145); Total Protein 8.5 g/dL (6.3-8.2)
[2019-11-19 12:07] LABS: Troponin I < 0.012 ng/mL (0.01-0.034)
--- NOTE | 2019-11-19 12:14 | ED_ITS ---
HPI - Chest Pain <VELMA Gonzalez - Last Filed: 11/19/19 20:25> General Chief Complaint: Chest Pain Stated Complaint: bloodclot eval/ lung advised from clinic Time Seen by Provider: 11/19/19 11:48 Source: patient Mode of arrival: Ambulatory Limitations: no limitations History of Present Illness HPI narrative: This is a 39-year-old female, former smoker, who has recent medical history as DVT, emphysema, spontaneous pneumo than hemothorax, fibromyalgia, hysterectomy with bilateral tubal ligation presents to ED after she was referred by hematology clinic for evaluation and treatment for possible pulmonary embolism and DVT. Patient states she had noticed 3 days ago feeling pins and needles in her arms and legs. She then had 1/2 mi walk on Tuesday and noticed small lump on right lower extremity. Patient denies redness, warmth, calf pain but rather pain is in anterior [place] region with small lump. Now she is experiencing mid upper chest discomfort and describes as sharp, aching, throbbing with bilateral midthoracic pain. Patient reports pain worsens with deep inhalation and bending over and reports nothing has been improving her discomfort. Patient reports albuterol inhaler is not improving chest discomfort. Patient denies palpitation, tachycardia or fainting episodes. Patient is not currently taking anticoagulants after she had hemothorax. Patient sees Dr. 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 Nascimento at [place] (bolt loader). Patient reports she has an appointment tomorrow with Dr. Nascimento for pulmonary function test. Related Data Home Medications Medication Instructions Recorded Confirmed acetaminophen 1,000 mg PO Q6H PRN 07/09/19 07/09/19 iron,carbonyl-vitamin C-FOS 1 tab PO DAILY 07/09/19 07/09/19 [Chewable Iron] Previous Rx's Medication Instructions Recorded hydrocodone-acetaminophen 1 tab PO Q4-6H PRN #10 tab 08/20/19 Allergies Allergy/AdvReac Type Severity Reaction Status Date / Time morphine AdvReac Vomiting Verified 10/04/19 10:00 Review of Systems <VELMA Gonzalez - Last Filed: 11/19/19 20:25> Review of Systems Narrative: General: Denies fever, chills, fatigue, malaise, sweats. HEENT: Denies sinus pain, ear pain, sore throat, difficulty swallowing, dizziness. Respiratory: See HPI Cardiovascular: HPI Gastrointestinal: Denies nausea, vomiting, abdominal pain, diarrhea, constipation, melena. : Denies dysuria, frequency, incontinence, hematuria, urinary retention. Musculoskeletal: See HPI Skin: Denies rash, skin lesions, or other. Neurologic: Denies weakness, headache, numbness, change in speech, confusion, seizures, incoordination. Psychiatric: No concerning psychosocial issues. 12-point review of systems is negative except for those stated above. Patient History <VELMA Gonzalez - Last Filed: 11/19/19 20:25> Medical History Anemia (Acute) DVT (deep venous thrombosis) (Acute) Emphysema lung (Acute) Fibromyalgia (Acute) History of pneumothorax (Acute) Pneumothorax (Acute) Social History Smoking Status: Former smoker Smoking Status: Former smoker alcohol intake frequency: 0-2 drinks per day Substance Use Type: does not use Exam <VELMA Gonzalez - Last Filed: 11/19/19 20:25> Narrative Exam Narrative: GEN: Alert, oriented x 3, well appearing and nourished, and in no acute distress. Head: Normal cephalic, atraumatic. No scalp or temporal tenderness, palpable mass or rash. EYES: Pupils are equal, round, and reactive to light and accommodation. Extraocular muscles are intact bilaterally. There is no subconjunctival hemorrhage, exudate and sclera non-icteric. ENT: Hearing grossly intact. Nose without bleeding, purulent discharge or dev iation. Mucous membrane moist, no mucosal lesion. Throat without erythema, tonsillar hypertrophy or exudate. Uvula in midline, airway patent. Neck: Trachea in midline. No JVD, non-tender without lymphadenopathy. No masses or thyroid megaly. Supple, non-tender and no meningeal signs. CARDIAC: Normal regular rate and rhythm without murmurs, gallops, or rubs. No chest wall tenderness. No peripheral edema, cyanosis or pallor. Capillary refill is less than 2 seconds. RESPIRATORY: Lungs are clear to auscultate bilaterally. No cough, wheezes, rales, or rhonchi. No stridor, respiratory distress, increase work of breathing, or accessary muscle used. ABD: Abdomen soft, nontender and non-distended. No guarding or rebound tenderness to palpate. Bowel sounds are normal in all 4 quadrants. There is no palpable masses or organomegaly. EXT: Small area of edema in medial aspect of right mid [place] in flesh color and no warmth. No tender to palpate. Homans sign negative. Calf soft without tenderness. Full painless ROM of all extremities with no loss of sensation, strength, effusion or edema. SKIN: Warm, dry, normal color for patient. No erythema, lesions or rash over vi sible areas. BACK: Nontender without deformity or crepitance. No flank tenderness. NEUROLOGICAL: Alert and oriented to place, time and person. Sensation and motor function intact bilaterally. No facial droops, dysphasia. PSYCHIATRIC: Good judgement and reason, without hallucinations, abnormal affect or abnormal behaviors during the examination. Patient is not suicidal. Initial Vital Signs Initial Vital Signs: Vital Signs Temperature 98.6 F 11/19/19 11:15 Pulse Rate 114 H 11/19/19 11:15 Respiratory Rate 24 11/19/19 11:15 Blood Pressure 176/113 H 11/19/19 11:15 Pulse Oximetry 100 11/19/19 11:15 <Nelson Quinn MD - Last Filed: 11/20/19 08:12> Initial Vital Signs Initial Vital Signs: Vital Signs Temperature 98.6 F 11/19/19 11:15 Pulse Rate 114 H 11/19/19 11:15 Respiratory Rate 24 11/19/19 11:15 Blood Pressure 176/113 H 11/19/19 11:15 Pulse Oximetry 100 11/19/19 11:15 Scores <Timothy DayneVELMA Sweeney - Last Filed: 11/19/19 20:25> GCS Annabelle coma scale eye opening: Spontaneous [place] coma scale verbal response: Orientated Annabelle coma scale motor response: Obey commands Annabelle coma scale total score: 15 Wells' Criteria for PE Clinical signs and symptoms of DVT: No PE is #1 Dx or equally likely: Yes Heart rate > 100: No Immobilization at least 3 days or surg in previous 4 weeks: No History of PE or DVT: Yes Hemoptysis: No Malignancy w/Treatment within 6 months or palliative: No Wells' PE Score total: 4.5 Citation:: PERC score 1 Wells' Criteria for DVT Active Cancer (Treatment within 6 months): No Bedridden recently >3 days or major surgery within 4 weeks: No Calf Swelling >3cm compared to other leg: No Collateral (nonvericose) superficial veins present: No Entire leg swollen: No Localized tenderness along the deep vein system: No Pitting edema, confined to symtomatic leg: No Paralysis, paresis, or recent plaster immobilization of ext: No Previously documented DVT: Yes Alternative dx to DVT as likely or more likely: Yes Wells' criteria for DVT: -1 Course <VELMA Gonzalez - Last Filed: 11/19/19 20:25> Orders Ordered: Discontinued Medications Al Hydrox/Mg Hydrox/Simethicone 20 ml/ Lidocaine HCl 15 ml 0 ml PO NOW ONE Stop: 11/19/19 13:24 Last Admin: 11/19/19 14:09 Dose: 35 ml Documented by: HARVINDER Ketorolac Tromethamine (Toradol) 15 mg IV NOW ONE Stop: 11/19/19 13:24 Last Admin: 11/19/19 14:08 Dose: 15 mg Documented by: HARVINDER Vital Signs Vital signs: Vital Signs - 8 hr 11/19/19 12:15 11/19/19 12:37 11/19/19 12:45 Pulse Rate 76 76 75 Respiratory Rate 24 20 20 Blood Pressure Pulse Oximetry 98 95 99 11/19/19 13:00 11/19/19 13:15 11/19/19 14:14 Pulse Rate 68 66 80 Respiratory Rate 17 26 H 14 Blood Pressure 127/80 Pulse Oximetry 100 100 99 <Nelson Quinn MD - Last Filed: 11/20/19 08:12> Orders Ordered: Discontinued Medications Al Hydrox/Mg Hydrox/Simethicone 20 ml/ Lidocaine HCl 15 ml 0 ml PO NOW ONE Stop: 11/19/19 13:24 Last Admin: 11/19/19 14:09 Dose: 35 ml Documented by: HARVINDER Ketorolac Tromethamine (Toradol) 15 mg IV NOW ONE Stop: 11/19/19 13:24 Last Admin: 11/19/19 14:08 Dose: 15 mg Documented by: HARVINDER Vital Signs Vital signs: Vital Signs - 8 hr 11/19/19 12:15 11/19/19 12:37 11/19/19 12:45 Pulse Rate 76 76 75 Respiratory Rate 24 20 20 Blood Pressure Pulse Oximetry 98 95 99 11/19/19 13:00 11/19/19 13:15 11/19/19 14:14 Pulse Rate 68 66 80 Respiratory Rate 17 26 H 14 Blood Pressure 127/80 Pulse Oximetry 100 100 99 MDM - Chest Pain <Timothy VELMA Sequeira - Last Filed: 11/19/19 20:25> Differential Diagnosis Differential diagnosis: Likely pneumothorax, atypical chest pain, costochondritis and other (PE, DVT, GERD, RAD, Mass, pneumonia) Medical Records Data Attestation: I reviewed the patient's medical records. Lab Data Attestation: I reviewed the patient's lab results. Result diagrams: 11/19/19 11:30 11/19/19 11:30 Labs: Lab Results 11/19/19 11/19/19 11/19/19 Range/Units 11:30 11:30 11:30 WBC 5.3 (4.5-11.0) X10^3/uL RBC 5.30 H (4.0-5.2) X10^6/uL Hgb 15.1 (12.0-16.0) g/dL Hct 45.2 (36-46) % MCV 85.3 (80-100) fL MCH 28.5 (26-34) PG MCHC 33.4 (30-36) % RDW 16.4 H (11.6-14.8) % Plt Count 255 (150-400) X10^3/uL Neut % (Auto) 62.5 (50-75) % Lymph % (Auto) 28.3 (25-40) % [place] % (Auto) 7.6 (3-14) % Eos % (Auto) 1.3 L (2-4) % Baso % (Auto) 0.3 (0-2) % Neut # (Auto) 3300 (8971-6769) /uL Lymph # (Auto) 1500 (2958-7238) /uL [place] # (Auto) 400 (0-900) /uL Eos # (Auto) 100 (0-450) /uL Baso # (Auto) 0 (0-100) /uL PT 11.6 (10.1-12.7) SECONDS INR 1.0 (0.9-1.3) APTT 31 (26.4-36.2) SECONDS D-Dimer < 200 (<230) ng/mL Sodium 140 (137-145) mmol/L Potassium 3.9 (3.4-5.1) mmol/L Chloride 103 (98-107) mmol/L Carbon Dioxide 31 (22-32) mmol/L BUN 9 (7-17) mg/dL Creatinine 0.83 (0.52-1.04) mg/dL Estimated GFR > 60.0 (>60) mL/min BUN/Creatinine Ratio 10.8 (6-22) Glucose 98 (70-100) mg/dL Calcium 9.8 (8.4-10.2) mg/dL Magnesium 1.9 (1.6-2.3) mg/dL Total Bilirubin 0.8 (0.2-1.3) mg/dL AST 31 (14-36) IU/L ALT 23 (<35) IU/L Alkaline Phosphatase 33 L (38-126) U/L Total Creatine Kinase 74 (30-135) U/L CK-MB (CK-2) TNP CK-MB (CK-2) Rel Index TNP Troponin I < 0.012 (0.01-0.034) ng/mL NT-Pro-B Natriuret Pep (<125) pg/mL Total Protein 8.5 H (6.3-8.2) g/dL Albumin 5.0 (3.5-5.0) g/dL Globulin 3.5 (1.7-4.1) g/dL Albumin/Globulin Ratio 1.4 (1.0-2.8) Lipase 102 (23-300) U/L // Range/Units 11:30 WBC (4.5-11.0) X10^3/uL RBC (4.0-5.2) X10^6/uL Hgb (12.0-16.0) g/dL Hct (36-46) % MCV (80-100) fL MCH (26-34) PG MCHC (30-36) % RDW (11.6-14.8) % Plt Count (150-400) X10^3/uL Neut % (Auto) (50-75) % Lymph % (Auto) (25-40) % [place] % (Auto) (3-14) % Eos % (Auto) (2-4) % Baso % (Auto) (0-2) % Neut # (Auto) (4163-7124) /uL Lymph # (Auto) (1942-0567) /uL [place] # (Auto) (0-900) /uL Eos # (Auto) (0-450) /uL Baso # (Auto) (0-100) /uL PT (10.1-12.7) SECONDS INR (0.9-1.3) APTT (26.4-36.2) SECONDS D-Dimer (<230) ng/mL Sodium (137-145) mmol/L Potassium (3.4-5.1) mmol/L Chloride (98-107) mmol/L Carbon Dioxide (22-32) mmol/L BUN (7-17) mg/dL Creatinine (0.52-1.04) mg/dL Estimated GFR (>60) mL/min BUN/Creatinine Ratio (6-22) Glucose (70-100) mg/dL Calcium (8.4-10.2) mg/dL Magnesium (1.6-2.3) mg/dL Total Bilirubin (0.2-1.3) mg/dL AST (14-36) IU/L ALT (<35) IU/L Alkaline Phosphatase (38-126) U/L Total Creatine Kinase (30-135) U/L CK-MB (CK-2) CK-MB (CK-2) Rel Index Troponin I (0.01-0.034) ng/mL NT-Pro-B Natriuret Pep 66 (<125) pg/mL Total Protein (6.3-8.2) g/dL Albumin (3.5-5.0) g/dL Globulin (1.7-4.1) g/dL Albumin/Globulin Ratio (1.0-2.8) Lipase (23-300) U/L Imaging Data CTA-PE test: Radiologist's Impression: [address] [address] [address] Scan Report Signed Patient: Sarah King LMR#: [id number] : 1980Acct:[id number] Age/Sex: 39 / FDate of Service: 11/19/19 Loc: ED Accession Number: [id number] Procedure: CT angio chest PE protocol Ordering Provider: Timothy Sequeira PROCEDURE: CT ANGIO CHEST PE PROTOCOL INDICATIONS: history of DVT, c/o chest pain TECHNIQUE: After the administration of intravenous contrast, 2 mm thick sections acquired from the pulmonary apices to the posterior costophrenic angles. 3-dimensional maximum intensity projection (MIP) coronal and sagittal reformats were then acquired through the thorax. For radiation dose reduction, the following was used: automated exposure control, adjustment of mA and/or kV according to patient size. COMPARISON: [facility], CT, CT CHEST WO CON, 08/20/2019, 22:34. FINDINGS: Image quality: Excellent. Pulmonary arteries: Pulmonary arteries are normal in size, and demonstrate no intraluminal filling defects to suggest central pulmonary embolism. Lungs and pleura: Centrilobular and paraseptal emphysema is noted in the lung apices. No acute consolidation is identified. No pleural effusions or pneumothorax. Central and peripheral airways are patent. Mediastinum: Heart size is normal, without pericardial effusion. Nonspecific soft tissue density is seen in the anterior mediastinum, which has mildly increased when compared to the prior CT from 08/20/2019. There is no significant mass effect. No significantly enlarged middle mediastinal or hilar lymph nodes are seen. Thoracic aorta is normal in caliber and enhancement. Esophagus is normal in caliber, without hiatal hernia. Bones and chest wall: No suspicious bony lesions. Ribs and thoracic spine appear intact throughout. Thyroid gland appears normal. No axillary or supraclavicular adenopathy. Abdomen: Visualized upper abdominal solid organs appear normal in the early arterial phase of enhancement. IMPRESSION: 1. No acute pulmonary embolism. 2. Mild to moderate centrilobular and paraseptal emphysema in the upper lobes bilaterally. 3. Nonspecific soft tissue density material in the anterior mediastinum appears to have increased in size when compared to the prior CT from 08/20/2019, possibly representing thymic hyperplasia versus a developing anterior mediastinal mass. Clinical correlation and continued follow-up is recommended. MRI may be useful in further evaluation. Dictated by: Augusto Sanchez M.D. on 11/19/2019 at 12:47 Approved by: Augusto Sanchez M.D. on 11/19/2019 at 13:06 Chest x-ray: Radiologist's Impression: [address] [address] XRay Report Signed Patient: Sarah King LMR#: [id number] : 1980Acct:[id number] Age/Sex: 39 / FDate of Service: 11/19/19 Loc: ED Accession Number: [id number] Procedure: XR chest 1V Ordering Provider: Nelson Quinn MD PROCEDURE: XR CHEST 1V INDICATIONS: chest pain TECHNIQUE: One view of the chest was acquired. COMPARISON: [facility], CR, XR CHEST 1V, 10/04/2019, 9:38. FINDINGS: Surgical changes and devices: None. Lungs and pleura: Lungs are clear. No pleural effusions or pneumothorax. Mediastinum: Mediastinal contours appear normal. Heart size is normal. Bones and chest wall: No suspicious bony lesions. Overlying soft tissues appear unremarkable. IMPRESSION: No acute process. Dictated by: Lm Adan M.D. on 11/19/2019 at 11:59 Approved by: Lm Adan M.D. on 11/19/2019 at 11:59 ECG Data Attestation: I personally reviewed and interpreted this ECG as follows: Prior ECG tracings: available for review Interpretation: Normal sinus rhythm rate at 83. Normal [place]. MA interval 138, QRS duration 88, QT/QTc 372/[address] changes No significant changes from previous ECG tracing. [facility] Narrative Medical decision making narrative: 39-year-old female who has history of DVT, anemia, spontaneous pneumo and hemo thorax, emphysema, fibromyalgia presents to ED after she was referred from hematology clinic with concerns for PE and DVT an evaluation. Physical exam is not consistent with DVT in right lower leg. Well's criteria for PE score is 4.5 (moderate risk). EKG is normal sinus rhythm, rate with normal axis without acute ST changes or [id number]. Unremarkable CBC with normal range of H&H of 15.1/45.2. Platelets and coags test is within normal limits. Chemistry test was unremarkable with normal cardiac enzymes. ProBNP is within normal and patient takes Lasix daily. Normal lipase. Normal D dimer, <200. Chest x-ray without acute findings with normal heart size. Wells criteria for DVT was -1. No further imaging test was ordered for DVT stye in right lower leg with negative D-dimer with negative DVT score. CT test for PE test shows no evidence of pulmonary embolism. There is mild to moderate centrilobular and paraseptal emphysema in upper lobes bilaterally. Patient is scheduled for pulmonary function test tomorrow which is arranged by her bolt loader Dr. Nascimento at [place]. Nonspecific soft tissue density material in the anterior mediastinum which has increase in size from previous CT test in August 2019 concerns for thymic hyperplasia verses anterior mediastinal mass and he was recommended to follow up with MRI. Findings were shared with patient and patient was medicated with IV Toradol and GI cocktail prior discharged to home. Patient advised to follow-up closely with her primary care provider with MRI test on chest finding. Patient's chest pain may related to costal chondritis, fibromyalgia, RAD/emphysema or unclear mediastinum soft tissue density material. Patient advised to use [id number] Tylenol and Motrin as needed for discomfort. Return precautions were discussed with patient and patient verbalized understanding in agreement with treatment plan. <Nelson Quinn MD - Last Filed: 11/20/19 08:12> Lab Data Labs: Lab Results 11/19/19 11/19/19 11/19/19 Range/Units 11:30 11:30 11:30 WBC 5.3 (4.5-11.0) X10^3/uL RBC 5.30 H (4.0-5.2) X10^6/uL Hgb 15.1 (12.0-16.0) g/dL Hct 45.2 (36-46) % MCV 85.3 (80-100) fL MCH 28.5 (26-34) PG MCHC 33.4 (30-36) % RDW 16.4 H (11.6-14.8) % Plt Count 255 (150-400) X10^3/uL Neut % (Auto) 62.5 (50-75) % Lymph % (Auto) 28.3 (25-40) % [place] % (Auto) 7.6 (3-14) % Eos % (Auto) 1.3 L (2-4) % Baso % (Auto) 0.3 (0-2) % Neut # (Auto) 3300 (8317-8183) /uL Lymph # (Auto) 1500 (6079-4457) /uL [place] # (Auto) 400 (0-900) /uL Eos # (Auto) 100 (0-450) /uL Baso # (Auto) 0 (0-100) /uL PT 11.6 (10.1-12.7) SECONDS INR 1.0 (0.9-1.3) APTT 31 (26.4-36.2) SECONDS D-Dimer < 200 (<230) ng/mL Sodium 140 (137-145) mmol/L Potassium 3.9 (3.4-5.1) mmol/L Chloride 103 (98-107) mmol/L Carbon Dioxide 31 (22-32) mmol/L BUN 9 (7-17) mg/dL Creatinine 0.83 (0.52-1.04) mg/dL Estimated GFR > 60.0 (>60) mL/min BUN/Creatinine Ratio 10.8 (6-22) Glucose 98 (70-100) mg/dL Calcium 9.8 (8.4-10.2) mg/dL Magnesium 1.9 (1.6-2.3) mg/dL Total Bilirubin 0.8 (0.2-1.3) mg/dL AST 31 (14-36) IU/L ALT 23 (<35) IU/L Alkaline Phosphatase 33 L (38-126) U/L Total Creatine Kinase 74 (30-135) U/L CK-MB (CK-2) TNP CK-MB (CK-2) Rel Index TNP Troponin I < 0.012 (0.01-0.034) ng/mL NT-Pro-B Natriuret Pep (<125) pg/mL Total Protein 8.5 H (6.3-8.2) g/dL Albumin 5.0 (3.5-5.0) g/dL Globulin 3.5 (1.7-4.1) g/dL Albumin/Globulin Ratio 1.4 (1.0-2.8) Lipase 102 (23-300) U/L 11/19/19 Range/Units 11:30 WBC (4.5-11.0) X10^3/uL RBC (4.0-5.2) X10^6/uL Hgb (12.0-16.0) g/dL Hct (36-46) % MCV (80-100) fL MCH (26-34) PG MCHC (30-36) % RDW (11.6-14.8) % Plt Count (150-400) X10^3/uL Neut % (Auto) (50-75) % Lymph % (Auto) (25-40) % [place] % (Auto) (3-14) % Eos % (Auto) (2-4) % Baso % (Auto) (0-2) % Neut # (Auto) (6818-6734) /uL Lymph # (Auto) (7028-9571) /uL [place] # (Auto) (0-900) /uL Eos # (Auto) (0-450) /uL Baso # (Auto) (0-100) /uL PT (10.1-12.7) SECONDS INR (0.9-1.3) APTT (26.4-36.2) SECONDS D-Dimer (<230) ng/mL Sodium (137-145) mmol/L Potassium (3.4-5.1) mmol/L Chloride (98-107) mmol/L Carbon Dioxide (22-32) mmol/L BUN (7-17) mg/dL Creatinine (0.52-1.04) mg/dL Estimated GFR (>60) mL/min BUN/Creatinine Ratio (6-22) Glucose (70-100) mg/dL Calcium (8.4-10.2) mg/dL Magnesium (1.6-2.3) mg/dL Total Bilirubin (0.2-1.3) mg/dL AST (14-36) IU/L ALT (<35) IU/L Alkaline Phosphatase (38-126) U/L Total Creatine Kinase (30-135) U/L CK-MB (CK-2) CK-MB (CK-2) Rel Index Troponin I (0.01-0.034) ng/mL NT-Pro-B Natriuret Pep 66 (<125) pg/mL Total Protein (6.3-8.2) g/dL Albumin (3.5-5.0) g/dL Globulin (1.7-4.1) g/dL Albumin/Globulin Ratio (1.0-2.8) Lipase (23-300) U/L Discharge Plan Departure Patient Disposition: Home Clinical Impression: Atypical chest pain, Leg pain, right Discharge Date/Time: 11/19/19 14:18 Instructions: DI for Atypical Chest Pain, DI for Leg Pain Activity Restrictions/Additional Instructions: You have been diagnosed with [atypical chest pain and right leg pain. Lab tests Are assuring including cardiac enzymes, chemistry tests, coags test, D-dimer and CT scan for PE test. No indications for PE and unlikely DVT. However, chest CT had incidental finding of mild to moderate emphysema in upper lobes bilaterally and nonspecific soft tissue density in the anterior mediastinum. It is recommended follow-up with MRI imaging test in the future. You were medicated with IV Toradol and GI cocktail for discomfort in ED]. What to do: *Take your medications as directed. You can take [id number] Tylenol and or Motrin as needed for discomfort. *Follow up with your primary care provider in 2-3 days, call for an appointment. Let them know you were seen in the ED and that we asked you to be seen in follow up. Please follow-up with all your specialty doctors as scheduled. *Return to ED if you have any new, worsening, or concerning symptoms, such as [worsening changes in chest pain, breathing difficulty, fever, unable to tolerate fluids, increasing neck size, or any acute concerns. Prescriptions: No Action acetaminophen 500 mg Capsule 1,000 mg PO Q6H PRN (Reason: Pain (Scale Score 1-3)) RF: 0 Chewable Iron 30-10-25 mg Tablet,Chewable 1 tab PO DAILY RF: 0 hydrocodone-acetaminophen 5-325 mg tablet 1 tab PO Q4-6H PRN (Reason: pain) Qty: 10 RF: 0 Referrals: Lakshmi Menendez DO [Primary Care Provider] -
--- NOTE | 2019-11-19 12:19 | DI.CT.S_ITS ---
PROCEDURE: CT ANGIO CHEST PE PROTOCOL INDICATIONS: history of DVT, c/o chest pain TECHNIQUE: After the administration of intravenous contrast, 2 mm thick sections acquired from the pulmonary apices to the posterior costophrenic angles. 3-dimensional maximum intensity projection (MIP) coronal and sagittal reformats were then acquired through the thorax. For radiation dose reduction, the following was used: automated exposure control, adjustment of mA and/or kV according to patient size. COMPARISON: [facility], CT, CT CHEST WO CON, 08/20/2019, 22:34. FINDINGS: Image quality: Excellent. Pulmonary arteries: Pulmonary arteries are normal in size, and demonstrate no intraluminal filling defects to suggest central pulmonary embolism. Lungs and pleura: Centrilobular and paraseptal emphysema is noted in the lung apices. No acute consolidation is identified. No pleural effusions or pneumothorax. Central and peripheral airways are patent. Mediastinum: Heart size is normal, without pericardial effusion. Nonspecific soft tissue density is seen in the anterior mediastinum, which has mildly increased when compared to the prior CT from 08/20/2019. There is no significant mass effect. No significantly enlarged middle mediastinal or hilar lymph nodes are seen. Thoracic aorta is normal in caliber and enhancement. Esophagus is normal in caliber, without hiatal hernia. Bones and chest wall: No suspicious bony lesions. Ribs and thoracic spine appear intact throughout. Thyroid gland appears normal. No axillary or supraclavicular adenopathy. Abdomen: Visualized upper abdominal solid organs appear normal in the early arterial phase of enhancement. IMPRESSION: 1. No acute pulmonary embolism. 2. Mild to moderate centrilobular and paraseptal emphysema in the upper lobes bilaterally. 3. Nonspecific soft tissue density material in the anterior mediastinum appears to have increased in size when compared to the prior CT from 08/20/2019, possibly representing thymic hyperplasia versus a developing anterior mediastinal mass. Clinical correlation and continued follow-up is recommended. MRI may be useful in further evaluation. Dictated by: Augusto Sanchez M.D. on 11/19/2019 at 12:47 Approved by: Augusto Sanchez M.D. on 11/19/2019 at 13:06
[2019-11-19 12:52] LABS: NT-proBNP (BNP-Adult 18+) 66 pg/mL (<125)
[2019-11-19] MEDS: KETOROLAC 60 MG/2 ML VIAL 15 MG IV (14:08)
[2019-11-19] MEDS: MAG HYDROX/ALUMINUM/SIMETH SUS 20 ML, LIDOCAINE VISCOUS 2% 15 ML PO (14:09)
== END 2019-11-19 14:18 | disposition home or self-care (01) ==
PROVIDERS: Emergency Medicine; Emergency Provider Nurse Practitioner Family; PCP Family Medicine
DX: R07.89 Other chest pain (principal); M79.604 Pain in right leg; Z86.718 Personal history of other venous thrombosis and embolism
CPT/HCPCS: 10010; 36415; 71045; 71275; 80053; 82550; 83690; 83735; 83880; 84484; 85025; 85379; 85610; 85730; 93005; 96374; 99284; J1885; Q9967

== ENCOUNTER 2020-01-21 11:55 | Emergency (ER) | payer OTHER, MEDICAID, SELFPAY ==
[2020-01-21] VITALS (8 sets, daily range): BP systolic 149; BP diastolic 101; PULSE 72–97; RESP 24; TEMP 36.7; O2SAT 94–100
--- NOTE | 2020-01-21 12:05 | DI.RAD.S_ITS ---
PROCEDURE: XR CHEST 2V INDICATIONS: chest pain TECHNIQUE: 2 views of the chest were acquired. COMPARISON: [facility], CR, XR CHEST 1V, 11/19/2019, 11:33. [facility], CR, XR CHEST 1V, 10/04/2019, 9:38. CT pulmonary angiogram 11/19/2019. FINDINGS: Surgical changes and devices: None. Lungs and pleura: Lungs are clear. No pleural effusions or pneumothorax. Mediastinum: Mediastinal contours are normal. Heart size is normal. Bones and chest wall: No suspicious bony abnormalities. Soft tissues appear unremarkable. IMPRESSION: No acute cardiopulmonary abnormality. Dictated by: Italo Lomeli M.D. on 01/21/2020 at 12:35 Approved by: Italo Lomeli M.D. on 01/21/2020 at 12:36
[2020-01-21 12:13] LABS: Add Manual Diff / Slide Review NO; Basophils Absolute Auto 100 /uL (0-100); Eosinophils Absolute Auto 100 /uL (0-450); Eosinophils Percent Auto 1.5 % (2-4); Hematocrit 46.5 % (36-46); Hemoglobin 15.9 g/dL (12.0-16.0); Lymphocytes Absolute Auto 1800 /uL (1100-4500); Lymphocytes Percent Auto 34.1 % (25-40); Mean Corpuscular HGB Conc 34.2 % (30-36); Mean Corpuscular Hemoglobin 30.7 PG (26-34); Mean Corpuscular Volume 89.8 fL (80-100); Monocytes Absolute Auto 500 /uL (0-900); Monocytes Percent Auto 9.9 % (3-14); Neutrophils Absolute Auto 2800 /uL (1500-7000); Neutrophils Percent Auto 53.5 % (50-75); Platelet Count 255 X10^3/uL (150-400); Red Blood Cell Count 5.18 X10^6/uL (4.0-5.2); Red Cell Distribution Width 15.5 % (11.6-14.8); White Blood Cell Count 5.2 X10^3/uL (4.5-11.0)
--- NOTE | 2020-01-21 12:18 | ED_ITS ---
HPI - Chest Pain General Chief Complaint: Chest Pain Stated Complaint: chest pain Time Seen by Provider: 01/21/20 12:00 Source: patient Mode of arrival: Ambulatory Limitations: no limitations History of Present Illness HPI narrative: Patient is a 40-year-old female with complicated history of emphysema, spontaneous pneumothorax with hemothorax was on Xarelto at this time, presenting today with worsening chest pain. She has had chest pain ongoing for months. She has neurologist and telling him whom she follows with closely. She was placed on prednisone in December for a short course when she said it helped for a few days but then the pain has gradually come back. She says no February anything but Tylenol and ibuprofen for pain in her pain is quite bad over the last 2 days. She denies any worsening shortness of breath with exertion no fever chills. She does have some productive cough but overall she is not too bad. No other symptoms at this time MD complaint: chest pain Onset (ago): month(s) Duration: constant Pain radiation: none Relieving factors: nothing Related Data Home Medications Medication Instructions Recorded Confirmed acetaminophen 1,000 mg PO Q6H PRN 07/09/19 01/21/20 iron,carbonyl-vitamin C-FOS 1 tab PO DAILY 07/09/19 01/21/20 [Chewable Iron] gabapentin 300 mg PO TID 01/21/20 01/21/20 Allergies Allergy/AdvReac Type Severity Reaction Status Date / Time morphine AdvReac Vomiting Verified 10/04/19 10:00 Review of Systems Review of Systems Narrative: GENERAL: Denies chills, fatigue, malaise, fever, sweats, travel HEENT: Denies sinus pain, ear pain, sore throat, difficulty swallowing, neck pain RESPIRATORY: Denies dyspnea, cough, wheezing, hemoptysis, sputum. CARDIOVASCULAR: See HPI GASTROINTESTINAL: Denies nausea, vomiting, abdominal pain, diarrhea, constipation, melena. : Denies dysuria, frequency, incontinence, hematuria, urinary retention, flank pain. MUSCULOSKELETAL: Denies weakness, joint pain, or bony pain SKIN: No rash, no erythema, no pruritus NEUROLOGIC: Denies weakness, dizziness, headache, numbness, change in speech, confusion PSYCHIATRIC: No concerning psychosocial issues. 12 point review of systems is negative except for those stated above and HPI Patient History Medical History Anemia (Acute) DVT (deep venous thrombosis) (Acute) Emphysema lung (Acute) Fibromyalgia (Acute) History of pneumothorax (Acute) Pneumothorax (Acute) Social History Smoking Status: Former smoker Smoking Status: Former smoker alcohol intake frequency: 0-2 drinks per day Substance Use Type: does not use Exam Initial Vital Signs Initial Vital Signs: Vital Signs Temperature 98.1 F 01/21/20 11:55 Pulse Rate 97 H 01/21/20 11:55 Respiratory Rate 24 01/21/20 11:55 Blood Pressure 149/101 H 01/21/20 11:55 Pulse Oximetry 99 01/21/20 11:55 GENERAL: Well-appearing, well-nourished and in no acute distress. HEENT: Head atraumatic,EOMI, pupils reactive, face symmetric, moist mucous mem branes CARDIOVASCULAR: Regular rate and rhythm without murmurs, rubs or gallops. RESPIRATORY: Breath sounds equal bilaterally, no wheezes rales or rhonchi. ABDOMEN: Soft, nontender. Normoactive bowel sounds all 4 quadrants. No guarding or rebound. EXTREMITIES: Normal range of motion, no clubbing or edema. Neurovascularly intact NEUROLOGICAL: Alert and oriented x4.Normal gait and speech. SKIN: Warm, dry, no laceration, no petechiae, no rashes or lesions. Course Orders Ordered: ED Orders 01/21/20 12:04 EKG-12 Lead Stat 01/21/20 12:05 XR chest 2V Stat 01/21/20 12:06 Complete Blood Count AUTO DIFF Stat Comprehensive Metabolic Panel Stat Lipase Stat NT-proBNP (BNP-Adult 18+) Stat Troponin & CK Cardiac Panel Stat 01/21/20 14:41 COVID19 -ED/INPAT/OR/L&D Stat Discontinued Medications Hydromorphone HCl (Dilaudid) 1 mg IV NOW ONE Stop: 01/21/20 13:36 Last Admin: 01/21/20 13:58 Dose: 1 mg Documented by: CANDACE Sodium Chloride (Normal Saline 0.9%) 1,000 mls @ 150 mls/hr IV CONT OSORIO Last Admin: 01/21/20 12:25 Dose: 150 mls/hr Documented by: DARON Vital Signs Vital signs: Vital Signs - 8 hr 10/05/20 11:55 01/21/20 12:10 01/21/20 12:32 Temperature 98.1 F Pulse Rate 97 H 92 H 96 H Respiratory Rate 24 Blood Pressure 149/101 H Pulse Oximetry 99 99 98 01/21/20 13:00 01/21/20 13:30 01/21/20 14:00 Temperature Pulse Rate 72 80 87 Respiratory Rate Blood Pressure Pulse Oximetry 99 98 100 01/21/20 14:30 01/21/20 15:00 Temperature Pulse Rate 81 82 Respiratory Rate Blood Pressure Pulse Oximetry 94 97 MDM - Chest Pain Lab Data Attestation: I reviewed the patient's lab results. Result diagrams: 01/21/20 12:06 01/21/20 12:06 Labs: Lab Results 01/21/20 01/21/20 01/21/20 Range/Units 12:06 12:06 14:41 WBC 5.2 (4.5-11.0) X10^3/uL RBC 5.18 (4.0-5.2) X10^6/uL Hgb 15.9 (12.0-16.0) g/dL Hct 46.5 H (36-46) % MCV 89.8 (80-100) fL MCH 30.7 (26-34) PG MCHC 34.2 (30-36) % RDW 15.5 H (11.6-14.8) % Plt Count 255 (150-400) X10^3/uL Neut % (Auto) 53.5 (50-75) % Lymph % (Auto) 34.1 (25-40) % Bullock % (Auto) 9.9 (3-14) % Eos % (Auto) 1.5 L (2-4) % Baso % (Auto) 1.0 (0-2) % Neut # (Auto) 2800 (8274-9831) /uL Lymph # (Auto) 1800 (8248-5839) /uL Bullock # (Auto) 500 (0-900) /uL Eos # (Auto) 100 (0-450) /uL Baso # (Auto) 100 (0-100) /uL Sodium 139 (137-145) mmol/L Potassium 3.6 (3.4-5.1) mmol/L Chloride 100 (98-107) mmol/L Carbon Dioxide 31 (22-32) mmol/L BUN 15 (7-17) mg/dL Creatinine 0.89 (0.52-1.04) mg/dL Estimated GFR > 60.0 (>60) mL/min BUN/Creatinine Ratio 16.9 (6-22) Glucose 87 (70-100) mg/dL Calcium 9.6 (8.4-10.2) mg/dL Total Bilirubin 0.6 (0.2-1.3) mg/dL AST 24 (14-36) IU/L ALT 22 (<35) IU/L Alkaline Phosphatase 34 L (38-126) U/L Total Creatine Kinase 32 (30-135) U/L CK-MB (CK-2) TNP CK-MB (CK-2) Rel Index TNP Troponin I < 0.012 (0.01-0.034) ng/mL NT-Pro-B Natriuret Pep 39 (<125) pg/mL Total Protein 8.6 H (6.3-8.2) g/dL Albumin 4.8 (3.5-5.0) g/dL Globulin 3.8 (1.7-4.1) g/dL Albumin/Globulin Ratio 1.3 (1.0-2.8) Lipase 99 (23-300) U/L COVID-19 PCR Negative (Negative) Imaging Data Chest x-ray: Radiologist's Impression: PROCEDURE: XR CHEST 2V INDICATIONS: chest pain TECHNIQUE: 2 views of the chest were acquired. COMPARISON: [facility], , XR CHEST 1V, 11/19/2019, 11:33. [facility], , XR CHEST 1V, 10/04/2019, 9:38. CT pulmonary angiogram 11/19/2019. FINDINGS: Surgical changes and devices: None. Lungs and pleura: Lungs are clear. No pleural effusions or pneumothorax. Mediastinum: Mediastinal contours are normal. Heart size is normal. Bones and chest wall: No suspicious bony abnormalities. Soft tissues appear unremarkable. IMPRESSION: No acute cardiopulmonary abnormality. Dictated by: Italo Lomeli M.D. on 01/21/2020 at 12:35 ECG Data Attestation: I personally reviewed and interpreted this ECG as follows: Prior ECG tracings: available for review Interpretation: Normal sinus rhythm rate 82 p.r. interval 158 QRS [address] changes or T-wave inversions MDM Narrative Medical decision making narrative: Patient has chronic ongoing chest pain. She is given a dose of Dilaudid here in the ED to help with her discomfort which does seem to help. She then mentions to staff that she has been exposed to COVID-19. She is tested for COVID-19 which is negative. At this time blood work chest x-ray EKG are overall reassuring. 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 I do not see that st eroids are indicated at this time she does not seem to have COPD or emphysema exacerbation. sHe not complaining of shortness of breath, I do not think CT is indicated at this time to rule out PE Discharge Plan Departure Patient Disposition: Home Clinical Impression: Atypical chest pain Discharge Date/Time: 01/21/20 15:26 Instructions: DI for Atypical Chest Pain Activity Restrictions/Additional Instructions: *You have been diagnosed with atypical chest pain *What to do: Please talk with your primary providers or leather carver about ongoing pain management. At this time there is no indication for antibiotics. *Continue to take medications as directed *Follow up with your primary care provider in 2-3 days *Return to ER if you should have worsening pain, shortness of breath, fever or any new, worsening or concerning symptoms Prescriptions: No Action gabapentin 300 mg capsule 300 mg PO TID RF: 0 acetaminophen 500 mg Capsule 1,000 mg PO Q6H PRN (Reason: Pain (Scale Score 1-3)) RF: 0 Chewable Iron 30-10-25 mg Tablet,Chewable 1 tab PO DAILY RF: 0 Referrals: Lakshmi Menendez DO [Primary Care Provider] -
[2020-01-21] MEDS: SODIUM CHLORIDE 0.9% 1,000 ML 150 ML IV (12:25)
[2020-01-21 12:26] LABS: Alanine Aminotransferase 22 IU/L (<35); Albumin 4.8 g/dL (3.5-5.0); Albumin Globulin Ratio 1.3 (1.0-2.8); Alkaline Phosphatase 34 U/L (38-126); Aspartate Aminotransferase 24 IU/L (14-36); BUN Creatinine Ratio 16.9 (6-22); Bilirubin Total 0.6 mg/dL (0.2-1.3); Blood Urea Nitrogen 15 mg/dL (7-17); Calcium 9.6 mg/dL (8.4-10.2); Carbon Dioxide 31 mmol/L (22-32); Chloride 100 mmol/L (98-107); Creatine Kinase 32 U/L (30-135); Estimated Glomerular Filt Rate > 60.0 mL/min (>60); Globulin 3.8 g/dL (1.7-4.1); Glucose 87 mg/dL (70-100); HEMOLYSIS < 15 (0-50); Lipase 99 U/L (23-300); Potassium 3.6 mmol/L (3.4-5.1); Sodium 139 mmol/L (137-145); Total Protein 8.6 g/dL (6.3-8.2)
[2020-01-21 12:38] LABS: NT-proBNP (BNP-Adult 18+) 39 pg/mL (<125); Troponin I < 0.012 ng/mL (0.01-0.034)
[2020-01-21] MEDS: HYDROMORPHONE 1 MG INJ IV (13:58)
[2020-01-21] MEDS: ONDANSETRON 4 MG/2 ML INJ (14:49)
[2020-01-21 15:06] LABS: COVID19 -Nasal RAPID Negative (Negative)
== END 2020-01-21 15:26 | disposition home or self-care (01) ==
PROVIDERS: Emergency Provider Emergency Medicine; PCP Family Medicine
DX: R07.89 Other chest pain (principal)
CPT/HCPCS: 36415; 71046; 80053; 82550; 83690; 83880; 84484; 85025; 87635; 93005; 96374; 96375; 99284; J1170; J2405

== ENCOUNTER 2020-01-23 11:31 | Emergency (ER) | payer OTHER, MEDICAID, SELFPAY ==
[2020-01-23] VITALS (8 sets, daily range): BP systolic 125–153; BP diastolic 72–89; PULSE 60–80; RESP 18–24; TEMP 36.6; O2SAT 98–99; BMI 28.3
--- NOTE | 2020-01-23 12:20 | DI.RAD.S_ITS ---
PROCEDURE: XR CHEST 1V INDICATIONS: chest pain TECHNIQUE: One view of the chest was acquired. COMPARISON: [facility], CR, XR CHEST 2V, 01/21/2020, 12:12. FINDINGS: Surgical changes and devices: None. Lungs and pleura: Lungs are clear. No pleural effusions or pneumothorax. Mediastinum: Mediastinal contours appear normal. Heart size is normal. Bones and chest wall: No suspicious bony lesions. Overlying soft tissues appear unremarkable. IMPRESSION: No acute cardiopulmonary findings. Dictated by: Kisha Faria M.D. on 01/23/2020 at 13:27 Approved by: Kisha Faria M.D. on 01/23/2020 at 13:28
[2020-01-23 12:45] LABS: Add Manual Diff / Slide Review NO; Basophils Absolute Auto 0 /uL (0-100); Basophils Percent Auto 0.8 % (0-2); Eosinophils Absolute Auto 0 /uL (0-450); Eosinophils Percent Auto 0.6 % (2-4); Hematocrit 44.1 % (36-46); Hemoglobin 14.9 g/dL (12.0-16.0); Lymphocytes Absolute Auto 1500 /uL (1100-4500); Lymphocytes Percent Auto 28.5 % (25-40); Mean Corpuscular HGB Conc 33.8 % (30-36); Mean Corpuscular Hemoglobin 30.3 PG (26-34); Mean Corpuscular Volume 89.4 fL (80-100); Monocytes Absolute Auto 400 /uL (0-900); Monocytes Percent Auto 7.1 % (3-14); Neutrophils Absolute Auto 3300 /uL (1500-7000); Platelet Count 238 X10^3/uL (150-400); Red Blood Cell Count 4.93 X10^6/uL (4.0-5.2); Red Cell Distribution Width 15.5 % (11.6-14.8); White Blood Cell Count 5.3 X10^3/uL (4.5-11.0)
[2020-01-23 12:51] LABS: INR 1.1 (0.9-1.3); Prothrombin Time 12.8 SECONDS (10.1-12.7)
[2020-01-23 12:54] LABS: PTT Partial Thromboplastin Tim 29 SECONDS (26.4-36.2)
[2020-01-23 12:56] LABS: Alanine Aminotransferase 16 IU/L (<35); Albumin 4.5 g/dL (3.5-5.0); Albumin Globulin Ratio 1.4 (1.0-2.8); Alkaline Phosphatase 30 U/L (38-126); Aspartate Aminotransferase 22 IU/L (14-36); BUN Creatinine Ratio 17.1 (6-22); Bilirubin Total 0.7 mg/dL (0.2-1.3); Blood Urea Nitrogen 13 mg/dL (7-17); Calcium 9.4 mg/dL (8.4-10.2); Carbon Dioxide 31 mmol/L (22-32); Chloride 102 mmol/L (98-107); Creatine Kinase 27 U/L (30-135); Estimated Glomerular Filt Rate > 60.0 mL/min (>60); Globulin 3.3 g/dL (1.7-4.1); Glucose 96 mg/dL (70-100); HEMOLYSIS < 15 (0-50); Lipase 66 U/L (23-300); Potassium 3.7 mmol/L (3.4-5.1); Sodium 139 mmol/L (137-145); Total Protein 7.8 g/dL (6.3-8.2)
--- NOTE | 2020-01-23 13:05 | ED.RECABL ---
HPI - Recheck/Abnormal Lab/Rx <VELMA Gonzalez - Last Filed: 01/24/20 02:01> General Chief Complaint: Recheck/Abnormal Lab/Rx Stated Complaint: chest pain, sharp burning Time Seen by Provider: 01/23/20 11:47 Source: patient Mode of arrival: Ambulatory Limitations: no limitations History of Present Illness HPI narrative: This is a 40-year-old female, former smoker, who has history of spontaneous pneumo and hemothorax, DVT, hysterectomy presents to ED with chief complain of bilateral chest pain radiating to back and describes as burning in character. Patient reports pain has been going on since June 2019 constantly. Patient reports she was evaluated in [facility] Emergency Room 2 days ago with similar symptoms and was discharged to home with atypical chest pain. Patient reports over the weekend she contacted with someone who has diagnosed with Covid 19 remotely. She was planning to follow-up with her primary care provider Nishi Bowser and was told to going to ED since patient has Covid symptoms such as chest pain. Patient reports she also has sore throat and pleuritic chest pain below bilateral ribs and right side chest. She feels hot flashes but no fever. Patient denies chills, cough. Patient states she has been evaluated multiple times with her symptoms here in [facility] and [place] but she has been told everything is normal and feels very frustrated. Patient denies currently on HRT, recent surgery, recent travel. Related Data Home Medications Medication Instructions Recorded Confirmed acetaminophen 1,000 mg PO Q6H PRN 07/09/19 01/21/20 iron,carbonyl-vitamin C-FOS 1 tab PO DAILY 07/09/19 01/21/20 [Chewable Iron] gabapentin 300 mg PO TID 01/21/20 01/21/20 furosemide 01/23/20 Previous Rx's Medication Instructions Recorded pantoprazole [Protonix] 20 mg PO DAILY #14 tab 01/23/20 Allergies Allergy/AdvReac Type Severity Reaction Status Date / Time morphine AdvReac Vomiting Verified 01/23/20 11:49 Review of Systems <VELMA Gonzalez - Last Filed: 01/24/20 02:01> Review of Systems Narrative: General: Denies fever, (+) hot flashes, chills, fatigue, malaise, sweats. HEENT: Denies sinus pain, ear pain, sore throat, difficulty swallowing, dizziness. Respiratory: Denies dyspnea, cough, wheezing, hemoptysis, sputum. Cardiovascular: See HPI Gastrointestinal: Denies nausea, vomiting, abdominal pain, diarrhea, constipation, melena. : Denies dysuria, frequency, incontinence, hematuria, urinary retention. Musculoskeletal: Denies weakness, joint pain or bony pain. Skin: Denies rash, skin lesions, or other. Neurologic: Denies weakness, headache, numbness, change in speech, confusion, seizures, incoordination. Psychiatric: Reports worries about her medical conditions. 12-point review of systems is negative except for those stated above. Patient History <VELMA Gonzalez - Last Filed: 01/24/20 02:01> Medical History Anemia (Acute) DVT (deep venous thrombosis) (Acute) Emphysema lung (Acute) Fibromyalgia (Acute) History of pneumothorax (Acute) Pneumothorax (Acute) Social History Smoking Status: Former smoker Smoking Status: Former smoker alcohol intake frequency: a few times a week Substance Use Type: does not use Exam <VELMA Gonzalez - Last Filed: 01/24/20 02:01> Narrative Exam Narrative: GEN: Alert, oriented x 3, well appearing and nourished, and appears to be anxious and tearful during interviews. Head: Normal cephalic, atraumatic. No scalp or temporal tenderness, palpable mass or rash. EYES: Pupils are equal, round, and reactive to light and accommodation. Extraocular muscles are intact bilaterally. There is no subconjunctival hemorrhage, exudate and sclera non-icteric. ENT: Bilateral auditory canals and tympanic membranes clear. Hearing grossly intact. Nose without bleeding, purulent discharge or deviation. Facial sinuses nontender to palpate. Mucous membrane moist, no mucosal lesion. Throat without erythema, tonsillar hypertrophy or exudate. Uvula in midline, airway patent. Neck: Trachea in midline. No JVD, non-tender without lymphadenopathy. No masses or thyroid megaly. Supple, non-tender and no meningeal signs. CARDIAC: Normal regular rate and rhythm without murmurs, gallops, or rubs. No chest wall tenderness. No peripheral edema, cyanosis or pallor. Capillary refill is less than 2 seconds. RESPIRATORY: Lungs are clear to auscultate bilaterally. No cough, wheezes, rales, or rhonchi. No stridor, respiratory distress, increase work of breathing, or accessary muscle used. ABD: Abdomen soft, nontender and non-distended. No guarding or rebound tenderness to palpate. Bowel sounds are normal in all 4 quadrants. There is no palpable masses or organomegaly. EXT: Full painless ROM of all extremities with no loss of sensation, strength, effusion or edema. SKIN: Warm, dry, normal color for patient. No erythema, lesions or rash over visible areas. BACK: Nontender without deformity or crepitance. No flank tenderness. NEUROLOGICAL: Alert and oriented to place, time and person. Sensation and motor function intact bilaterally. No facial droops, dysphasia. PSYCHIATRIC: Good judgement and reason, without hallucinations, apprehensive during the examination. Patient is not suicidal. Initial Vital Signs Initial Vital Signs: Vital Signs Temperature 97.9 F 01/23/20 11:41 Pulse Rate 80 01/23/20 11:41 Respiratory Rate 22 01/23/20 11:41 Blood Pressure 153/89 H 01/23/20 11:41 Pulse Oximetry 98 01/23/20 11:41 <Dustin Bravo DO - Last Filed: 01/24/20 07:06> Initial Vital Signs Initial Vital Signs: Vital Signs Temperature 97.9 F 01/23/20 11:41 Pulse Rate 80 01/23/20 11:41 Respiratory Rate 22 01/23/20 11:41 Blood Pressure 153/89 H 01/23/20 11:41 Pulse Oximetry 98 01/23/20 11:41 Scores <VELMA Gonzalez - Last Filed: 01/24/20 02:01> PERC Score Age greater than or equal to 50 years: No Heart rate greater than or equal to 100 bpm: No Room Air O2 Sat less than 95%: No Unilateral leg swelling: No Recent trauma or surgery: No Hemoptysis: No Prior PE or DVT: Yes Hormone Use: No Total PERC Score: 1 Wells' Criteria for PE Clinical signs and symptoms of DVT: No PE is #1 Dx or equally likely: No Heart rate > 100: No Immobilization at least 3 days or surg in previous 4 weeks: No History of PE or DVT: Yes Hemoptysis: No Malignancy w/Treatment within 6 months or palliative: No Wells' PE Score total: 1.5 Citation:: PE unlikely. D dimer negative today. Course <Timothy Sequeira VELMA - Last Filed: 01/24/20 02:01> Orders Ordered: Discontinued Medications Ketorolac Tromethamine (Toradol) 15 mg IV NOW ONE Stop: 01/23/20 13:06 Last Admin: 01/23/20 13:17 Dose: 15 mg Documented by: JUSTINO Pantoprazole Sodium (Protonix) 40 mg IV NOW ONE Stop: 01/23/20 14:04 Last Admin: 01/23/20 14:09 Dose: 40 mg Documented by: JUSTINO Vital Signs Vital signs: Vital Signs - 8 hr 01/23/20 11:41 01/23/20 11:57 01/23/20 12:00 Temperature 97.9 F Pulse Rate 80 74 72 Respiratory Rate 22 18 24 Blood Pressure 153/89 H 125/83 Pulse Oximetry 98 99 98 01/23/20 12:30 01/23/20 13:00 01/23/20 13:30 Temperature Pulse Rate 71 69 60 Respiratory Rate 34 H 24 24 Blood Pressure 134/74 126/76 134/84 Pulse Oximetry 98 98 98 01/23/20 13:47 Temperature Pulse Rate 77 Respiratory Rate 22 Blood Pressure 126/80 Pulse Oximetry 99 <Dustin Bravo DO - Last Filed: 01/24/20 07:06> Orders Ordered: Discontinued Medications Ketorolac Tromethamine (Toradol) 15 mg IV NOW ONE Stop: 01/23/20 13:06 Last Admin: 01/23/20 13:17 Dose: 15 mg Documented by: JUSTINO Pantoprazole Sodium (Protonix) 40 mg IV NOW ONE Stop: 01/23/20 14:04 Last Admin: 01/23/20 14:09 Dose: 40 mg Documented by: MMANDREAR Vital Signs Vital signs: Vital Signs - 8 hr 01/23/20 11:41 01/23/20 11:57 01/23/20 12:00 Temperature 97.9 F Pulse Rate 80 74 72 Respiratory Rate 22 18 24 Blood Pressure 153/89 H 125/83 Pulse Oximetry 98 99 98 01/23/20 12:30 01/23/20 13:00 01/23/20 13:30 Temperature Pulse Rate 71 69 60 Respiratory Rate 34 H 24 24 Blood Pressure 134/74 126/76 134/84 Pulse Oximetry 98 98 98 01/23/20 13:47 Temperature Pulse Rate 77 Respiratory Rate 22 Blood Pressure 126/80 Pulse Oximetry 99 MDM - Recheck/Abnormal Lab/Rx <PAMELA GonzalezP - Last Filed: 01/24/20 02:01> Differential Diagnosis Differential diagnosis: Likely other (Covid 19, PE, NSTEMI, Atypical chest pain, costal chondritis, GERD, gastritis) Medical Records Attestation: I reviewed the patient's medical records. Lab Data Attestation: I reviewed the patient's lab results. Result diagrams: 01/23/20 12:35 01/23/20 12:35 Labs: Lab Results 01/23/20 01/23/20 01/23/20 Range/Units 12:35 12:35 12:35 WBC 5.3 (4.5-11.0) X10^3/uL RBC 4.93 (4.0-5.2) X10^6/uL Hgb 14.9 (12.0-16.0) g/dL Hct 44.1 (36-46) % MCV 89.4 (80-100) fL MCH 30.3 (26-34) PG MCHC 33.8 (30-36) % RDW 15.5 H (11.6-14.8) % Plt Count 238 (150-400) X10^3/uL Neut % (Auto) 63.0 (50-75) % Lymph % (Auto) 28.5 (25-40) % [place] % (Auto) 7.1 (3-14) % Eos % (Auto) 0.6 L (2-4) % Baso % (Auto) 0.8 (0-2) % Neut # (Auto) 3300 (9779-4269) /uL Lymph # (Auto) 1500 (6369-9367) /uL [place] # (Auto) 400 (0-900) /uL Eos # (Auto) 0 (0-450) /uL Baso # (Auto) 0 (0-100) /uL PT 12.8 H (10.1-12.7) SECONDS INR 1.1 (0.9-1.3) APTT 29 D (26.4-36.2) SECONDS D-Dimer < 200 (<230) ng/mL Sodium 139 (137-145) mmol/L Potassium 3.7 (3.4-5.1) mmol/L Chloride 102 (98-107) mmol/L Carbon Dioxide 31 (22-32) mmol/L BUN 13 (7-17) mg/dL Creatinine 0.76 (0.52-1.04) mg/dL Estimated GFR > 60.0 (>60) mL/min BUN/Creatinine Ratio 17.1 (6-22) Glucose 96 (70-100) mg/dL Calcium 9.4 (8.4-10.2) mg/dL Total Bilirubin 0.7 (0.2-1.3) mg/dL AST 22 (14-36) IU/L ALT 16 (<35) IU/L Alkaline Phosphatase 30 L (38-126) U/L Total Creatine Kinase 27 L (30-135) U/L CK-MB (CK-2) TNP CK-MB (CK-2) Rel Index TNP Troponin I < 0.012 (0.01-0.034) ng/mL NT-Pro-B Natriuret Pep 40 (<125) pg/mL Total Protein 7.8 (6.3-8.2) g/dL Albumin 4.5 (3.5-5.0) g/dL Globulin 3.3 (1.7-4.1) g/dL Albumin/Globulin Ratio 1.4 (1.0-2.8) Lipase 66 (23-300) U/L COVID-19 PCR (Negative) 01/23/20 Range/Units 12:54 WBC (4.5-11.0) X10^3/uL RBC (4.0-5.2) X10^6/uL Hgb (12.0-16.0) g/dL Hct (36-46) % MCV (80-100) fL MCH (26-34) PG MCHC (30-36) % RDW (11.6-14.8) % Plt Count (150-400) X10^3/uL Neut % (Auto) (50-75) % Lymph % (Auto) (25-40) % [place] % (Auto) (3-14) % Eos % (Auto) (2-4) % Baso % (Auto) (0-2) % Neut # (Auto) (5261-4801) /uL Lymph # (Auto) (0041-9672) /uL [place] # (Auto) (0-900) /uL Eos # (Auto) (0-450) /uL Baso # (Auto) (0-100) /uL PT (10.1-12.7) SECONDS INR (0.9-1.3) APTT (26.4-36.2) SECONDS D-Dimer (<230) ng/mL Sodium (137-145) mmol/L Potassium (3.4-5.1) mmol/L Chloride (98-107) mmol/L Carbon Dioxide (22-32) mmol/L BUN (7-17) mg/dL Creatinine (0.52-1.04) mg/dL Estimated GFR (>60) mL/min BUN/Creatinine Ratio (6-22) Glucose (70-100) mg/dL Calcium (8.4-10.2) mg/dL Total Bilirubin (0.2-1.3) mg/dL AST (14-36) IU/L ALT (<35) IU/L Alkaline Phosphatase (38-126) U/L Total Creatine Kinase (30-135) U/L CK-MB (CK-2) CK-MB (CK-2) Rel Index Troponin I (0.01-0.034) ng/mL NT-Pro-B Natriuret Pep (<125) pg/mL Total Protein (6.3-8.2) g/dL Albumin (3.5-5.0) g/dL Globulin (1.7-4.1) g/dL Albumin/Globulin Ratio (1.0-2.8) Lipase (23-300) U/L COVID-19 PCR Negative (Negative) Urine Dip Bedside Urine Glucose Negative Bedside Urine Bilirubin - Negative Bedside Urine Ketone +/- 5 Urine Specific [place] 1.030 Bedside Urine Occult Blood - Negative Bedside Urine pH 6.0 Bedside Urine Protein +/- 15 Bedside Urine Urobilinogen - Negative Bedside Urine Nitrite - Negative Bedside Urine Leukocytes - Negative Esterase ECG Data Attestation: I personally reviewed and interpreted this ECG as follows: Prior ECG tracings: available for review Interpretation: Normal sinus rhythm with possible left atrial enlargement rate at 71. Normal [place]. [place] interval 150, QRS duration 94, QT/QTC 388/421 Right incomplete bundle branch block ST changes, no significant changes from previous ECG tracings. MDM Narrative Medical decision making narrative: This is a 40 year female who presents to ED with bilateral chest burning pain which is reproducible with remote exposure to Covid. Patient was evaluated 2 days ago in [facility] ED and was discharged to home with atypical chest pain. She was hoping to follow-up with primary care physician and directed to go to ED since patient exhibits Covid with symptoms. Covid test 2 days ago was negative. Patient's vital sign is afebrile with normal tensive and normal heart rate. EKG sinus rhythm with incomplete right bundle-branch block rate at [address] changes. Chest x-ray was negative for acute findings. Stable H&H. Cardiac enzymes were negative. Unremarkable chemistry test. D-dimer was negative. Patient was medicated with Toradol IV with improved symptoms. Patient also medicated with Protonix before leaving ED since she uses ibuprofen regularly but has not been taking this for last 5 days give her body break. Patient reports her pain has been ongoing since June of 2019, deferred 2nd troponin test. Given negative D-dimer with wells criteria for PE in low risk, will defer chest CT at this time. 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 Consider taking ibuprofen low-dose as needed for discomfort. Also advised patient consider taking PPI for next couple of weeks see if this helps her symptoms. Return precautions were discussed with patient and patient verbalized understanding and agreement with the treatment plan. <Dustin Bravo, DO - Last Filed: 01/24/20 07:06> Lab Data Labs: Lab Results 01/23/20 01/23/20 01/23/20 Range/Units 12:35 12:35 12:35 WBC 5.3 (4.5-11.0) X10^3/uL RBC 4.93 (4.0-5.2) X10^6/uL Hgb 14.9 (12.0-16.0) g/dL Hct 44.1 (36-46) % MCV 89.4 (80-100) fL MCH 30.3 (26-34) PG MCHC 33.8 (30-36) % RDW 15.5 H (11.6-14.8) % Plt Count 238 (150-400) X10^3/uL Neut % (Auto) 63.0 (50-75) % Lymph % (Auto) 28.5 (25-40) % [place] % (Auto) 7.1 (3-14) % Eos % (Auto) 0.6 L (2-4) % Baso % (Auto) 0.8 (0-2) % Neut # (Auto) 3300 (1160-5823) /uL Lymph # (Auto) 1500 (4690-0244) /uL [place] # (Auto) 400 (0-900) /uL Eos # (Auto) 0 (0-450) /uL Baso # (Auto) 0 (0-100) /uL PT 12.8 H (10.1-12.7) SECONDS INR 1.1 (0.9-1.3) APTT 29 D (26.4-36.2) SECONDS D-Dimer < 200 (<230) ng/mL Sodium 139 (137-145) mmol/L Potassium 3.7 (3.4-5.1) mmol/L Chloride 102 (98-107) mmol/L Carbon Dioxide 31 (22-32) mmol/L BUN 13 (7-17) mg/dL Creatinine 0.76 (0.52-1.04) mg/dL Estimated GFR > 60.0 (>60) mL/min BUN/Creatinine Ratio 17.1 (6-22) Glucose 96 (70-100) mg/dL Calcium 9.4 (8.4-10.2) mg/dL Total Bilirubin 0.7 (0.2-1.3) mg/dL AST 22 (14-36) IU/L ALT 16 (<35) IU/L Alkaline Phosphatase 30 L (38-126) U/L Total Creatine Kinase 27 L (30-135) U/L CK-MB (CK-2) TNP CK-MB (CK-2) Rel Index TNP Troponin I < 0.012 (0.01-0.034) ng/mL NT-Pro-B Natriuret Pep 40 (<125) pg/mL Total Protein 7.8 (6.3-8.2) g/dL Albumin 4.5 (3.5-5.0) g/dL Globulin 3.3 (1.7-4.1) g/dL Albumin/Globulin Ratio 1.4 (1.0-2.8) Lipase 66 (23-300) U/L COVID-19 PCR (Negative) 01/23/20 Range/Units 12:54 WBC (4.5-11.0) X10^3/uL RBC (4.0-5.2) X10^6/uL Hgb (12.0-16.0) g/dL Hct (36-46) % MCV (80-100) fL MCH (26-34) PG MCHC (30-36) % RDW (11.6-14.8) % Plt Count (150-400) X10^3/uL Neut % (Auto) (50-75) % Lymph % (Auto) (25-40) % [place] % (Auto) (3-14) % Eos % (Auto) (2-4) % Baso % (Auto) (0-2) % Neut # (Auto) (4874-6037) /uL Lymph # (Auto) (1663-1664) /uL [place] # (Auto) (0-900) /uL Eos # (Auto) (0-450) /uL Baso # (Auto) (0-100) /uL PT (10.1-12.7) SECONDS INR (0.9-1.3) APTT (26.4-36.2) SECONDS D-Dimer (<230) ng/mL Sodium (137-145) mmol/L Potassium (3.4-5.1) mmol/L Chloride (98-107) mmol/L Carbon Dioxide (22-32) mmol/L BUN (7-17) mg/dL Creatinine (0.52-1.04) mg/dL Estimated GFR (>60) mL/min BUN/Creatinine Ratio (6-22) Glucose (70-100) mg/dL Calcium (8.4-10.2) mg/dL Total Bilirubin (0.2-1.3) mg/dL AST (14-36) IU/L ALT (<35) IU/L Alkaline Phosphatase (38-126) U/L Total Creatine Kinase (30-135) U/L CK-MB (CK-2) CK-MB (CK-2) Rel Index Troponin I (0.01-0.034) ng/mL NT-Pro-B Natriuret Pep (<125) pg/mL Total Protein (6.3-8.2) g/dL Albumin (3.5-5.0) g/dL Globulin (1.7-4.1) g/dL Albumin/Globulin Ratio (1.0-2.8) Lipase (23-300) U/L COVID-19 PCR Negative (Negative) Urine Dip Bedside Urine Glucose Negative Bedside Urine Bilirubin - Negative Bedside Urine Ketone +/- 5 Urine Specific [place] 1.030 Bedside Urine Occult Blood - Negative Bedside Urine pH 6.0 Bedside Urine Protein +/- 15 Bedside Urine Urobilinogen - Negative Bedside Urine Nitrite - Negative Bedside Urine Leukocytes - Negative Esterase Discharge Plan Departure Patient Disposition: Home Clinical Impression: Atypical chest pain Discharge Date/Time: 01/23/20 14:32 Instructions: DI for Atypical Chest Pain Activity Restrictions/Additional Instructions: You have been diagnosed with [atypical chest pain. Negative cardiac enzymes, D-dimer. No acute findings in chest x-ray. Unremarkable chemistry and CBC. Repeated Covid test today which is negative]. What to do: *Take your medications as directed. Continue with ibuprofen 400-600 mg as needed for discomfort with meals to decrease GI irritation. You can take [id number] Tylenol as well. Please take Protonix 20 mg daily for next couple of weeks this helps with her symptoms. Protonix has been transmitted to [facility] in [place]. *Follow up with your primary care provider and assistant professor of spanish in 2-3 days, call for an appointment. Let them know you were seen in the ED and that we asked you to be seen in follow up. *Return to ED if you have any new, worsening, or concerning symptoms, such as [worsening pain, different chest pain, breathing difficulty, unable to tolerate fluids, fever, or any acute concerns]. Prescriptions: New pantoprazole [Protonix] 20 mg tablet,delayed release (DR/EC) 20 mg PO DAILY Qty: 14 RF: 0 No Action gabapentin 300 mg capsule 300 mg PO TID RF: 0 furosemide 40 mg tablet RF: 0 acetaminophen 500 mg Capsule 1,000 mg PO Q6H PRN (Reason: Pain (Scale Score 1-3)) RF: 0 Chewable Iron 30-10-25 mg Tablet,Chewable 1 tab PO DAILY RF: 0 Referrals: Lakshmi Menendez DO [Primary Care Provider] - <Dustin Bravo DO - Last Filed: 01/24/20 07:06> Cosign ED Attending Cosignature Attestation: Dr Bravo Co-Sign Statement: I was available for consultation during this patient's emergency department visit. This chart is signed by myself for administrative purposes only. I did not have direct contact with this patient during this visit. They were seen independently by the APC.
[2020-01-23 13:08] LABS: NT-proBNP (BNP-Adult 18+) 40 pg/mL (<125); Troponin I < 0.012 ng/mL (0.01-0.034)
[2020-01-23 13:13] LABS: COVID19 -Nasal RAPID Negative (Negative)
[2020-01-23] MEDS: KETOROLAC 60 MG/2 ML VIAL 15 MG IV (13:17)
[2020-01-23 13:30] LABS: D Dimer < 200 ng/mL (<230)
[2020-01-23] MEDS: PANTOPRAZOLE 40 MG VIAL IV (14:09)
== END 2020-01-23 14:32 | disposition home or self-care (01) ==
PROVIDERS: Emergency Provider Nurse Practitioner Family; PCP Family Medicine
DX: R07.89 Other chest pain (principal)
CPT/HCPCS: 36415; 71045; 80053; 81003; 82550; 83690; 83880; 84484; 85025; 85379; 85610; 85730; 87635; 93005; 96374; 96375; 99284; C9113; J1885